=== PATIENT | male | born 1930 | race Caucasian/White ===

== ENCOUNTER 2016-07-20 15:22 | Inpatient (IN) | payer MEDICARE, MEDICAID ==
[~2016-07-20] VITALS: Ht 188 cm; Wt 101.3 kg
[2016-07-20] VITALS (17 sets, daily range): BP systolic 73–123; BP diastolic 40–77
[~2016-07-20 15:22] MED LIST: ACET-73 PO; ACET325T53 PO; ARGI1POW13 PO; ASCO500C16 PO; ASPI-495 PO; ATOR20TA PO; CARV3.122 PO; DIVA500T54 PO; DOCU-25 PO; DUTA0.5C PO; GABA-532 PO; GLIP5TAB13 PO; HYDR-4076 PO; HYDR-548 PO; HYDR-552 PO; IPRA0.2S9 IH; ISOS30TA6 PO; MAG30ORA PO; MAGN2400 PO; METO5TAB7 PO; MULT1TAB11 PO; POTA-10 PO; PRIM250T PO; PROM6.25 PO; TAMS-12 PO; ZINC220T PO
[2016-07-20] MEDS ORDERED: IV NS 0.9% 1,000 ML BAG IV ONE ×2 (15:30→17:00)
[2016-07-20] MEDS ORDERED: IV SET PRIMARY 1 EA INFUS.SET MC ONE (15:31)
[2016-07-20] MEDS ORDERED: IV NS 0.9% 2,000 ML ONE (15:31)
[2016-07-20 15:46] LABS: BASOPHILS % (AUTO) 0.2 % (0.0-2.0); DIFF TOTAL % 100 %; EOSINOPHILS # (AUTO) 0.2 /CMM (0.0-0.7); EOSINOPHILS % (AUTO) 1.6 % (0.0-6.0); HEMATOCRIT 31 % (39-51); HEMOGLOBIN 10.5 g/dL (13.5-17.5); LYMPHOCYTES # (AUTO) 1.9 /CMM (0.8-4.8); LYMPHOCYTES % (AUTO) 20.3 % (20.0-44.0); MEAN CORPUSCULAR HEMOGLOBIN 30 PG (26.0-33.0); MEAN CORPUSCULAR HGB CONC 34 g/dl (31.0-36.0); MEAN CORPUSCULAR VOLUME 89 fL (80-96); MONOCYTES # (AUTO) 1.3 /CMM (0.1-1.30); MONOCYTES % (AUTO) 13.4 % (2.0-12.0); NEUTROPHILS # (AUTO) 6.1 /CMM (1.8-8.9); NEUTROPHILS % (AUTO) 64.5 % (43.0-81.0); PLATELET COUNT (AUTO) 163 /CMM (150-450); RED BLOOD CELL COUNT(AUTO) 3.47 MIL/uL (4.5-6.0); WHITE BLOOD COUNT (AUTO) 9.5 K/uL (4.3-11.0)
[2016-07-20 15:57] LABS: ANION GAP 15 (5-14); CARBON DIOXIDE 27 mmol/L (21-32); CHLORIDE 99 mmol/L (98-107); GLUCOSE 134 mg/dL (74-106); POTASSIUM 4.1 mmol/L (3.5-5.1); SODIUM SERUM 136 mmol/L (136-145); UREA NITROGEN, BLOOD 75 mg/dL (7-18)
[2016-07-20 16:00] LABS: INR 1.01 (0.87-1.13); PROTHROMBIN TIME 10.6 SECS (9.5-12.7)
[2016-07-20 16:03] LABS: ALANINE AMINOTRANSFERASE 9 U/L (12-78); ALBUMIN 2.3 g/dL (3.4-5.0); ASPARTATE AMINOTRANSFERASE 11 U/L (15-37); BILIRUBIN,DIRECT 0.1 mg/dL (0.0-0.2); BILIRUBIN,TOTAL 0.3 mg/dL (0.2-1.0); CALCIUM, SERUM 8.1 mg/dL (8.5-10.1); INDIRECT BILIRUBIN 0.2 mg/dL (0.0-1.1); TOTAL PROTEIN, SERUM 6.9 g/dL (6.4-8.2)
[2016-07-20 16:04] LABS: TROPONIN I < 0.017 ng/mL (0.00-0.056)
[2016-07-20 16:08] LABS: LACTIC ACID 1.5 mmol/L (0.4-2.0)
[2016-07-20] MEDS ORDERED: BLOO-668 IN (16:15)
[2016-07-20] MEDS ORDERED: ATOR10TA PO (16:15)
[2016-07-20] MEDS ORDERED: PANT40TA4 PO (16:15)
[2016-07-20] MEDS ORDERED: POLY15DR40 EACHEYE (16:15)
[2016-07-20] MEDS ORDERED: ENOX40DI SQ (16:15)
[2016-07-20] MEDS ORDERED: ACID1TAB12 PO (16:15)
[2016-07-20] MEDS ORDERED: MELA3TAB PO (16:15)
[2016-07-20] MEDS ORDERED: DIVA125C5 PO (16:15)
[2016-07-20] MEDS ORDERED: DIVA250T6 PO (16:15)
[2016-07-20] MEDS ORDERED: FOLI1TAB16 PO (16:15)
[2016-07-20] MEDS ORDERED: SENN8.6T6 PO (16:15)
[2016-07-20] MEDS ORDERED: PRIM50TA PO (16:15)
[2016-07-20] MEDS ORDERED: NITR0.4T6 SL (16:15)
[2016-07-20] MEDS ORDERED: IV NS 0.9% 1,000 ML ONE (16:55)
[2016-07-20] MEDS ORDERED: IV SET PRIMARY PUMP SET 1 EA INFUS.SET MC ONE ×3 (16:55→19:41)
[2016-07-20 17:16] LABS: KETONES,URINE Trace (NEGATIVE); LEUKOCYTE ESTERASE ,URINE Large (NEGATIVE); PH,URINE 5.5 (5.0-8.0)
[2016-07-20 17:25] LABS: ADD UA MICROSCOPIC YES
[2016-07-20 17:36] LABS: ADD URINE CULTURE YES; RBC,URINE TOO NUMEROUS TO COUN /HPF (0-2); WBC,URINE TOO NUMEROUS TO COUN /HPF (0-3)
[2016-07-20] MEDS ORDERED: AZTREONAM 2 G in IV NS 0.9% 100 ML IV ONE (18:00)
[2016-07-20] MEDS ORDERED: VANCOMYCIN 1 GM in IV D5W 250 ML IV ONE (18:00)
[2016-07-20] MEDS ORDERED: MAG HYDROX/AL HYDROX/SIMETH 30 ML UDC PO PRN (19:00)
[2016-07-20] MEDS ORDERED: NOREPINEPHRINE 8 MG in IV D5W 500 ML IV PRN ×2 (19:00→19:30)
[2016-07-20] MEDS ORDERED: ZOLPIDEM TARTRATE 5 MG TABLET PO PRN (19:00)
[2016-07-20] MEDS ORDERED: ACETAMINOPHEN 325 MG TABLET PO PRN (19:00)
[2016-07-20] MEDS ORDERED: Z GUARD REMEDY 2 OZ OINT TP PRN (19:00)
[2016-07-20] MEDS ORDERED: ONDANSETRON HCL/PF 4 MG/2 ML VIAL IVP PRN (19:00)
[2016-07-20] MEDS ORDERED: MAGNESIUM HYDROXIDE 30 ML UDC PO PRN (19:00)
[2016-07-20] MEDS: IV NS 0.9% 1,000 ML IV PRN (19:25)
[2016-07-20] MEDS ORDERED: SECONDARY IV SET 1 EA INFUS.SET MC ONE (19:41)
[2016-07-20] MEDS: AZTREONAM 500 MG in IV NS 0.9% 50 ML IV SCH (20:30)
[2016-07-20] MEDS ORDERED: AZTREONAM 1 G VIAL IM SCH (21:00)
[2016-07-20] MEDS ORDERED: VANCOMYCIN 1.25 GM in IV D5W 500 ML IV SCH (21:00)
[2016-07-20] MEDS: VANCOMYCIN 1 GM in IV D5W 250 ML IV SCH (21:17)
[2016-07-20] MEDS ORDERED: FEE PK DOSING 1 MIN EA MC ONE (21:41)
[2016-07-20] MEDS ORDERED: LIDOCAINE HCL/PF 1% 30 ML SDV ONE (22:06)
[2016-07-21] VITALS (49 sets, daily range): BP systolic 81–124; BP diastolic 25–90
[2016-07-21] MEDS ORDERED: ACETAMINOPHEN 325 MG TABLET PO PRN
[2016-07-21] MEDS: ATORVASTATIN 10 MG TABLET PO SCH ×2 (00:10→21:02)
[2016-07-21] MEDS: DIVALPROEX SODIUM 250 MG TABLET.DR PO SCH ×2 (00:11→21:03)
[2016-07-21] MEDS ORDERED: AZTREONAM 1 G VIAL ONE (04:04)
[2016-07-21] MEDS ORDERED: IV NS 0.9% 50 ML IV ONE (04:27)
[2016-07-21] MEDS: AZTREONAM 500 MG in IV NS 0.9% 50 ML IV SCH ×3 (05:02→21:02)
[2016-07-21 05:04] LABS: BASOPHILS % (AUTO) 0.4 % (0.0-2.0); DIFF TOTAL % 100 %; EOSINOPHILS # (AUTO) 0.2 /CMM (0.0-0.7); EOSINOPHILS % (AUTO) 1.9 % (0.0-6.0); HEMATOCRIT 35 % (39-51); HEMOGLOBIN 11.5 g/dL (13.5-17.5); LYMPHOCYTES # (AUTO) 1.6 /CMM (0.8-4.8); MEAN CORPUSCULAR HEMOGLOBIN 30 PG (26.0-33.0); MEAN CORPUSCULAR HGB CONC 33 g/dl (31.0-36.0); MEAN CORPUSCULAR VOLUME 90 fL (80-96); MONOCYTES # (AUTO) 1.4 /CMM (0.1-1.30); NEUTROPHILS # (AUTO) 6.9 /CMM (1.8-8.9); NEUTROPHILS % (AUTO) 67.7 % (43.0-81.0); PLATELET COUNT (AUTO) 218 /CMM (150-450); RED BLOOD CELL COUNT(AUTO) 3.85 MIL/uL (4.5-6.0); WHITE BLOOD COUNT (AUTO) 10.3 K/uL (4.3-11.0)
[2016-07-21 05:13] LABS: CALCIUM, SERUM 8.1 mg/dL (8.5-10.1); CREATININE 2.5 mg/dL (0.6-1.3); PHOSPHORUS 3.6 mg/dL (2.5-4.9); POTASSIUM 3.9 mmol/L (3.5-5.1)
[2016-07-21] MEDS: IV NS 0.9% 1,000 ML IV PRN ×2 (07:30→18:08)
[2016-07-21] MEDS ORDERED: HYDROGEL DRESSING 90 GM TUBE TP PRN (08:30)
[2016-07-21] MEDS: DUTASTERIDE (0.5 MG) 0.5 MG CAPSULE PO SCH (08:55)
[2016-07-21] MEDS: ACIDOPHILUS/BULGARICUS 1 EACH TAB.CHEW PO SCH ×2 (08:55→17:11)
[2016-07-21] MEDS: ASPIRIN 81 MG TAB.CHEW PO SCH (08:55)
[2016-07-21] MEDS: GABAPENTIN 100 MG CAPSULE PO SCH ×3 (08:55→17:11)
[2016-07-21] MEDS: FOLIC ACID 1 MG TABLET PO SCH (08:55)
[2016-07-21] MEDS: DOCUSATE SODIUM 100 MG CAPSULE PO SCH ×2 (08:55→17:11)
[2016-07-21] MEDS: HYDROGEL DRESSING 90 GM TUBE TP SCH (08:55)
[2016-07-21] MEDS: DIVALPROEX SODIUM 125 MG CAP.SPRINK PO SCH ×2 (08:55→17:11)
[2016-07-21] MEDS: PANTOPRAZOLE 40 MG TABLET.DR PO SCH (08:55)
[2016-07-21] MEDS ORDERED: POLYETHYLENE GLYCOL 3350 17 GM POWD.PACK PO PRN (10:30)
[2016-07-21] MEDS ORDERED: BISACODYL SUPP (10 MG) 10 MG/SUPP.RECT SUPP.RECT RC PRN (10:30)
[2016-07-21] MEDS: GUAIFENESIN/D-METHORPHAN HB 5 ML UDC PO PRN ×3 (13:32→22:38)
[2016-07-21] MEDS ORDERED: DOCUSATE SODIUM 100 MG CAPSULE PO SCH (17:00)
[2016-07-21] MEDS: HYDROCODONE/APAP 5/325MG 1 EACH TABLET PO PRN (21:33)
[2016-07-22] VITALS (18 sets, daily range): BP systolic 67–139; BP diastolic 36–62
[2016-07-22] MEDS: IV NS 0.9% 1,000 ML IV PRN (03:47)
[2016-07-22] MEDS: HYDROCODONE/APAP 5/325MG 1 EACH TABLET PO PRN ×2 (03:47→08:17)
[2016-07-22] MEDS: GUAIFENESIN/D-METHORPHAN HB 5 ML UDC PO PRN ×2 (03:54→09:56)
[2016-07-22] MEDS: AZTREONAM 500 MG in IV NS 0.9% 50 ML IV SCH ×3 (05:08→21:32)
[2016-07-22 05:29] LABS: CALCIUM, SERUM 8.2 mg/dL (8.5-10.1); CREATININE 1.8 mg/dL (0.6-1.3); POTASSIUM 4.1 mmol/L (3.5-5.1)
[2016-07-22 05:37] LABS: BASOPHILS % (AUTO) 0.4 % (0.0-2.0); DIFF TOTAL % 100 %; EOSINOPHILS # (AUTO) 0.1 /CMM (0.0-0.7); HEMATOCRIT 31 % (39-51); HEMOGLOBIN 10.5 g/dL (13.5-17.5); LYMPHOCYTES # (AUTO) 1.3 /CMM (0.8-4.8); LYMPHOCYTES % (AUTO) 19.6 % (20.0-44.0); MEAN CORPUSCULAR HEMOGLOBIN 30 PG (26.0-33.0); MEAN CORPUSCULAR HGB CONC 34 g/dl (31.0-36.0); MEAN CORPUSCULAR VOLUME 89 fL (80-96); MONOCYTES % (AUTO) 15.3 % (2.0-12.0); NEUTROPHILS # (AUTO) 4.2 /CMM (1.8-8.9); NEUTROPHILS % (AUTO) 62.7 % (43.0-81.0); PLATELET COUNT (AUTO) 129 /CMM (150-450); RED BLOOD CELL COUNT(AUTO) 3.51 MIL/uL (4.5-6.0); WHITE BLOOD COUNT (AUTO) 6.7 K/uL (4.3-11.0)
[2016-07-22 06:26] LABS: BAND % (MANUAL) 1 % (0.0-5.0); EOSINOPHILS % (MANUAL) 1 % (0-4); LYMPHOCYTES % (MANUAL) 17 % (16-48)
[2016-07-22 06:27] LABS: PLATELET ESTIMATE DECREASED
[2016-07-22] MEDS: DOCUSATE SODIUM 100 MG CAPSULE PO SCH ×2 (08:00→16:21)
[2016-07-22] MEDS: ASPIRIN 81 MG TAB.CHEW PO SCH (08:00)
[2016-07-22] MEDS: GABAPENTIN 100 MG CAPSULE PO SCH ×3 (08:00→16:21)
[2016-07-22] MEDS: DUTASTERIDE (0.5 MG) 0.5 MG CAPSULE PO SCH (08:00)
[2016-07-22] MEDS: FOLIC ACID 1 MG TABLET PO SCH (08:00)
[2016-07-22] MEDS: DIVALPROEX SODIUM 125 MG CAP.SPRINK PO SCH ×2 (08:00→16:21)
[2016-07-22] MEDS: PANTOPRAZOLE 40 MG TABLET.DR PO SCH (08:00)
[2016-07-22] MEDS: ACIDOPHILUS/BULGARICUS 1 EACH TAB.CHEW PO SCH ×2 (08:00→16:21)
[2016-07-22] MEDS: HYDROGEL DRESSING 90 GM TUBE TP SCH (08:01)
[2016-07-22] MEDS: SILVER SULFADIAZINE CREAM 25 GM TUBE TP SCH (08:03)
[2016-07-22] MEDS: VANCOMYCIN 1 GM in IV D5W 250 ML IV SCH (08:07)
[2016-07-22] MEDS: IPRATROPIUM NEB FS 0.5 MG/2.5 ML AMPUL.NEB IH PRN ×2 (09:46→13:55)
[2016-07-22] MEDS: HYDROCODONE/APAP 10/325MG 1 EA TABLET PO PRN ×3 (10:07→20:27)
[2016-07-22] MEDS ORDERED: IV NS 0.9% 250 ML IV ONE (12:10)
[2016-07-22] MEDS ORDERED: POLYETHYLENE GLYCOL 3350 17 GM POWD.PACK PO PRN (13:00)
[2016-07-22] MEDS ORDERED: BISACODYL SUPP (10 MG) 10 MG/SUPP.RECT SUPP.RECT RC PRN (13:00)
[2016-07-22] MEDS: ALBUTEROL FS 2.5 MG/3 ML VIAL.NEB NEB SCH ×2 (13:55→19:30)
[2016-07-22] MEDS ORDERED: DOCUSATE SODIUM 100 MG CAPSULE PO SCH (17:00)
[2016-07-22] MEDS: DIVALPROEX SODIUM 250 MG TABLET.DR PO SCH (21:32)
[2016-07-22] MEDS: ATORVASTATIN 10 MG TABLET PO SCH (21:32)
[2016-07-23] VITALS: BP 96/48
[2016-07-23] MEDS: ALBUTEROL FS 2.5 MG/3 ML VIAL.NEB NEB SCH ×4 (01:06→20:03)
[2016-07-23 04:00] VITALS: BP 106/48
[2016-07-23] MEDS: AZTREONAM 500 MG in IV NS 0.9% 50 ML IV SCH ×2 (05:42→13:14)
[2016-07-23 07:14] LABS: BASOPHILS % (AUTO) 0.3 % (0.0-2.0); DIFF TOTAL % 100 %; EOSINOPHILS # (AUTO) 0.2 /CMM (0.0-0.7); EOSINOPHILS % (AUTO) 2.5 % (0.0-6.0); HEMATOCRIT 32 % (39-51); HEMOGLOBIN 10.8 g/dL (13.5-17.5); LYMPHOCYTES # (AUTO) 1.5 /CMM (0.8-4.8); LYMPHOCYTES % (AUTO) 16.7 % (20.0-44.0); MEAN CORPUSCULAR HEMOGLOBIN 30 PG (26.0-33.0); MEAN CORPUSCULAR HGB CONC 34 g/dl (31.0-36.0); MEAN CORPUSCULAR VOLUME 89 fL (80-96); MONOCYTES # (AUTO) 1.3 /CMM (0.1-1.30); MONOCYTES % (AUTO) 14.5 % (2.0-12.0); NEUTROPHILS # (AUTO) 5.9 /CMM (1.8-8.9); PLATELET COUNT (AUTO) 153 /CMM (150-450); RED BLOOD CELL COUNT(AUTO) 3.61 MIL/uL (4.5-6.0)
[2016-07-23 08:00] VITALS: BP 102/70
[2016-07-23 08:01] LABS: CALCIUM, SERUM 8.6 mg/dL (8.5-10.1); CREATININE 1.5 mg/dL (0.6-1.3); POTASSIUM 4.4 mmol/L (3.5-5.1)
[2016-07-23] MEDS: PANTOPRAZOLE 40 MG TABLET.DR PO SCH (08:43)
[2016-07-23] MEDS: GABAPENTIN 100 MG CAPSULE PO SCH ×3 (08:44→18:17)
[2016-07-23] MEDS: DIVALPROEX SODIUM 125 MG CAP.SPRINK PO SCH ×2 (08:44→18:17)
[2016-07-23] MEDS: VANCOMYCIN 1 GM in IV D5W 250 ML IV SCH (08:44)
[2016-07-23] MEDS: DUTASTERIDE (0.5 MG) 0.5 MG CAPSULE PO SCH (08:44)
[2016-07-23] MEDS: ASPIRIN 81 MG TAB.CHEW PO SCH (08:44)
[2016-07-23] MEDS: ACIDOPHILUS/BULGARICUS 1 EACH TAB.CHEW PO SCH ×2 (08:44→18:17)
[2016-07-23] MEDS: FOLIC ACID 1 MG TABLET PO SCH (08:44)
[2016-07-23] MEDS: HYDROCODONE/APAP 10/325MG 1 EA TABLET PO PRN ×2 (08:45→20:21)
[2016-07-23] MEDS: DOCUSATE SODIUM 100 MG CAPSULE PO SCH ×2 (08:46→18:17)
[2016-07-23] MEDS: SILVER SULFADIAZINE CREAM 25 GM TUBE TP SCH (08:52)
[2016-07-23] MEDS: HYDROGEL DRESSING 90 GM TUBE TP SCH (08:52)
[2016-07-23] MEDS: GUAIFENESIN/D-METHORPHAN HB 5 ML UDC PO PRN (10:31)
[2016-07-23 12:00] VITALS: BP 102/49
[2016-07-23] MEDS ORDERED: SECONDARY IV SET 1 EA INFUS.SET MC ONE (12:57)
[2016-07-23] MEDS: TRAMADOL HCL 50 MG TABLET PO PRN (14:44)
[2016-07-23 16:00] VITALS: BP 95/47
[2016-07-23 20:00] VITALS: BP 108/56
[2016-07-23] MEDS: SULFAMETH/TRIMETH 800/160 MG 1 UDTAB TABLET PO SCH (20:20)
[2016-07-23] MEDS: DIVALPROEX SODIUM 250 MG TABLET.DR PO SCH (21:32)
[2016-07-23] MEDS: ATORVASTATIN 10 MG TABLET PO SCH (21:32)
[2016-07-24] VITALS: BP 99/55
[2016-07-24] MEDS: IPRATROPIUM NEB FS 0.5 MG/2.5 ML AMPUL.NEB IH PRN (01:36)
[2016-07-24] MEDS: ALBUTEROL FS 2.5 MG/3 ML VIAL.NEB NEB SCH ×4 (01:36→20:09)
[2016-07-24 04:00] VITALS: BP 105/65
[2016-07-24 08:00] VITALS: BP 100/47
[2016-07-24 08:06] LABS: BASOPHILS % (AUTO) 0.3 % (0.0-2.0); DIFF TOTAL % 100 %; EOSINOPHILS # (AUTO) 0.2 /CMM (0.0-0.7); EOSINOPHILS % (AUTO) 2.3 % (0.0-6.0); HEMATOCRIT 31 % (39-51); HEMOGLOBIN 10.4 g/dL (13.5-17.5); LYMPHOCYTES # (AUTO) 1.8 /CMM (0.8-4.8); LYMPHOCYTES % (AUTO) 19.3 % (20.0-44.0); MEAN CORPUSCULAR HEMOGLOBIN 30 PG (26.0-33.0); MEAN CORPUSCULAR HGB CONC 34 g/dl (31.0-36.0); MEAN CORPUSCULAR VOLUME 89 fL (80-96); MONOCYTES # (AUTO) 1.1 /CMM (0.1-1.30); MONOCYTES % (AUTO) 11.8 % (2.0-12.0); NEUTROPHILS # (AUTO) 6.2 /CMM (1.8-8.9); NEUTROPHILS % (AUTO) 66.3 % (43.0-81.0); PLATELET COUNT (AUTO) 116 /CMM (150-450); RED BLOOD CELL COUNT(AUTO) 3.45 MIL/uL (4.5-6.0); WHITE BLOOD COUNT (AUTO) 9.4 K/uL (4.3-11.0)
[2016-07-24 08:43] LABS: CALCIUM, SERUM 8.4 mg/dL (8.5-10.1); CREATININE 1.7 mg/dL (0.6-1.3); POTASSIUM 4.2 mmol/L (3.5-5.1)
[2016-07-24] MEDS: ASPIRIN 81 MG TAB.CHEW PO SCH (08:56)
[2016-07-24] MEDS: GABAPENTIN 100 MG CAPSULE PO SCH ×3 (08:56→17:21)
[2016-07-24] MEDS: SULFAMETH/TRIMETH 800/160 MG 1 UDTAB TABLET PO SCH ×2 (08:57→21:39)
[2016-07-24] MEDS: ACIDOPHILUS/BULGARICUS 1 EACH TAB.CHEW PO SCH ×2 (08:57→17:22)
[2016-07-24] MEDS: FOLIC ACID 1 MG TABLET PO SCH (08:57)
[2016-07-24] MEDS: TRAMADOL HCL 50 MG TABLET PO PRN ×2 (08:57→17:22)
[2016-07-24] MEDS: DOCUSATE SODIUM 100 MG CAPSULE PO SCH ×2 (08:57→17:22)
[2016-07-24] MEDS: DIVALPROEX SODIUM 125 MG CAP.SPRINK PO SCH ×2 (08:57→17:22)
[2016-07-24] MEDS: PANTOPRAZOLE 40 MG TABLET.DR PO SCH (08:57)
[2016-07-24] MEDS: SILVER SULFADIAZINE CREAM 25 GM TUBE TP SCH (08:59)
[2016-07-24] MEDS: HYDROGEL DRESSING 90 GM TUBE TP SCH (09:00)
[2016-07-24] MEDS: VANCOMYCIN 1 GM in IV D5W 250 ML IV SCH (09:03)
[2016-07-24] MEDS: DUTASTERIDE (0.5 MG) 0.5 MG CAPSULE PO SCH (09:11)
[2016-07-24 12:00] VITALS: BP_SYST 108; BP_SYST 90; BP_DIAS 47; BP_DIAS 71
[2016-07-24] MEDS: HYDROCODONE/APAP 10/325MG 1 EA TABLET PO PRN ×2 (12:55→21:38)
[2016-07-24] MEDS: GUAIFENESIN/D-METHORPHAN HB 5 ML UDC PO PRN (12:55)
[2016-07-24 16:00] VITALS: BP 95/46
[2016-07-24 20:00] VITALS: BP 106/48
[2016-07-24] MEDS: DIVALPROEX SODIUM 250 MG TABLET.DR PO SCH (21:39)
[2016-07-24] MEDS: ATORVASTATIN 10 MG TABLET PO SCH (21:39)
[2016-07-25] VITALS (7 sets, daily range): BP systolic 90–115; BP diastolic 40–50
[2016-07-25] MEDS ORDERED: IV NS 0.9% 250 ML IV ONE (00:43)
[2016-07-25] MEDS ORDERED: IV SET PRIMARY PUMP SET 1 EA INFUS.SET MC ONE (00:43)
[2016-07-25] MEDS ORDERED: SECONDARY IV SET 1 EA INFUS.SET MC ONE (00:43)
[2016-07-25] MEDS: ALBUTEROL FS 2.5 MG/3 ML VIAL.NEB NEB SCH ×4 (01:30→19:58)
[2016-07-25 08:37] LABS: CALCIUM, SERUM 8.5 mg/dL (8.5-10.1); CREATININE 1.8 mg/dL (0.6-1.3)
[2016-07-25] MEDS: FOLIC ACID 1 MG TABLET PO SCH (09:06)
[2016-07-25] MEDS: DUTASTERIDE (0.5 MG) 0.5 MG CAPSULE PO SCH (09:06)
[2016-07-25] MEDS: PANTOPRAZOLE 40 MG TABLET.DR PO SCH (09:06)
[2016-07-25] MEDS: DOCUSATE SODIUM 100 MG CAPSULE PO SCH ×2 (09:06→16:20)
[2016-07-25] MEDS: ACIDOPHILUS/BULGARICUS 1 EACH TAB.CHEW PO SCH ×2 (09:06→16:20)
[2016-07-25] MEDS: ASPIRIN 81 MG TAB.CHEW PO SCH (09:06)
[2016-07-25] MEDS: DIVALPROEX SODIUM 125 MG CAP.SPRINK PO SCH ×2 (09:06→16:20)
[2016-07-25] MEDS: SULFAMETH/TRIMETH 800/160 MG 1 UDTAB TABLET PO SCH ×2 (09:06→21:11)
[2016-07-25] MEDS: VANCOMYCIN 1 GM in IV D5W 250 ML IV SCH (09:07)
[2016-07-25] MEDS: HYDROGEL DRESSING 90 GM TUBE TP SCH (09:07)
[2016-07-25] MEDS: HYDROCODONE/APAP 10/325MG 1 EA TABLET PO PRN (09:08)
[2016-07-25] MEDS: GABAPENTIN 100 MG CAPSULE PO SCH ×3 (09:11→16:20)
[2016-07-25] MEDS: SILVER SULFADIAZINE CREAM 25 GM TUBE TP SCH (09:37)
[2016-07-25] MEDS: ATORVASTATIN 10 MG TABLET PO SCH (21:11)
[2016-07-25] MEDS: DIVALPROEX SODIUM 250 MG TABLET.DR PO SCH (21:11)
[2016-07-26] MEDS: ALBUTEROL FS 2.5 MG/3 ML VIAL.NEB NEB SCH ×4 (01:38→19:30)
[2016-07-26 04:30] VITALS: BP 105/43
[2016-07-26] MEDS: PANTOPRAZOLE 40 MG TABLET.DR PO SCH (06:30)
[2016-07-26] MEDS: IPRATROPIUM NEB FS 0.5 MG/2.5 ML AMPUL.NEB IH PRN (07:33)
[2016-07-26 08:00] VITALS: BP 97/53
[2016-07-26] MEDS: DUTASTERIDE (0.5 MG) 0.5 MG CAPSULE PO SCH (08:10)
[2016-07-26] MEDS: FOLIC ACID 1 MG TABLET PO SCH (08:10)
[2016-07-26] MEDS: DIVALPROEX SODIUM 125 MG CAP.SPRINK PO SCH ×2 (08:10→16:14)
[2016-07-26] MEDS: ASPIRIN 81 MG TAB.CHEW PO SCH (08:10)
[2016-07-26] MEDS: HYDROGEL DRESSING 90 GM TUBE TP SCH (08:10)
[2016-07-26] MEDS: SILVER SULFADIAZINE CREAM 25 GM TUBE TP SCH (08:10)
[2016-07-26] MEDS: DOCUSATE SODIUM 100 MG CAPSULE PO SCH ×2 (08:10→16:14)
[2016-07-26] MEDS: SULFAMETH/TRIMETH 800/160 MG 1 UDTAB TABLET PO SCH ×2 (08:11→22:01)
[2016-07-26] MEDS: GABAPENTIN 100 MG CAPSULE PO SCH ×3 (08:11→16:14)
[2016-07-26] MEDS: ACIDOPHILUS/BULGARICUS 1 EACH TAB.CHEW PO SCH ×2 (08:11→16:14)
[2016-07-26] MEDS: HYDROCODONE/APAP 10/325MG 1 EA TABLET PO PRN (08:12)
[2016-07-26 08:17] LABS: CALCIUM, SERUM 8.6 mg/dL (8.5-10.1); CREATININE 1.7 mg/dL (0.6-1.3); POTASSIUM 4.4 mmol/L (3.5-5.1)
[2016-07-26] MEDS: TRAMADOL HCL 50 MG TABLET PO PRN (15:14)
[2016-07-26 16:00] VITALS: BP 94/45
[2016-07-26 20:00] VITALS: BP 97/45
[2016-07-26] MEDS: ATORVASTATIN 10 MG TABLET PO SCH (22:00)
[2016-07-26] MEDS: DIVALPROEX SODIUM 250 MG TABLET.DR PO SCH (22:01)
[2016-07-27] MEDS: ALBUTEROL FS 2.5 MG/3 ML VIAL.NEB NEB SCH ×4 (01:30→19:39)
[2016-07-27 04:00] VITALS: BP 122/82
[2016-07-27] MEDS: HYDROCODONE/APAP 10/325MG 1 EA TABLET PO PRN (05:38)
[2016-07-27] MEDS: PANTOPRAZOLE 40 MG TABLET.DR PO SCH (06:15)
[2016-07-27 07:24] LABS: BASOPHILS % (AUTO) 0.6 % (0.0-2.0); DIFF TOTAL % 100 %; EOSINOPHILS # (AUTO) 0.5 /CMM (0.0-0.7); EOSINOPHILS % (AUTO) 8.2 % (0.0-6.0); HEMATOCRIT 31 % (39-51); HEMOGLOBIN 10.2 g/dL (13.5-17.5); LYMPHOCYTES # (AUTO) 1.2 /CMM (0.8-4.8); LYMPHOCYTES % (AUTO) 19.5 % (20.0-44.0); MEAN CORPUSCULAR HEMOGLOBIN 30 PG (26.0-33.0); MEAN CORPUSCULAR HGB CONC 33 g/dl (31.0-36.0); MEAN CORPUSCULAR VOLUME 89 fL (80-96); MONOCYTES # (AUTO) 0.9 /CMM (0.1-1.30); MONOCYTES % (AUTO) 13.6 % (2.0-12.0); NEUTROPHILS # (AUTO) 3.7 /CMM (1.8-8.9); NEUTROPHILS % (AUTO) 58.1 % (43.0-81.0); PLATELET COUNT (AUTO) 159 /CMM (150-450); RED BLOOD CELL COUNT(AUTO) 3.46 MIL/uL (4.5-6.0); WHITE BLOOD COUNT (AUTO) 6.4 K/uL (4.3-11.0)
[2016-07-27 07:28] LABS: CALCIUM, SERUM 8.4 mg/dL (8.5-10.1); CREATININE 1.8 mg/dL (0.6-1.3); POTASSIUM 4.4 mmol/L (3.5-5.1)
[2016-07-27 08:00] VITALS: BP 87/90
[2016-07-27] MEDS: SULFAMETH/TRIMETH 800/160 MG 1 UDTAB TABLET PO SCH ×2 (09:12→21:24)
[2016-07-27] MEDS: ASPIRIN 81 MG TAB.CHEW PO SCH (09:12)
[2016-07-27] MEDS: DIVALPROEX SODIUM 125 MG CAP.SPRINK PO SCH ×2 (09:12→17:38)
[2016-07-27] MEDS: FOLIC ACID 1 MG TABLET PO SCH (09:12)
[2016-07-27] MEDS: DOCUSATE SODIUM 100 MG CAPSULE PO SCH ×2 (09:12→17:38)
[2016-07-27] MEDS: GABAPENTIN 100 MG CAPSULE PO SCH ×3 (09:13→17:38)
[2016-07-27] MEDS: ACIDOPHILUS/BULGARICUS 1 EACH TAB.CHEW PO SCH ×2 (09:13→17:38)
[2016-07-27] MEDS: HYDROGEL DRESSING 90 GM TUBE TP SCH (09:54)
[2016-07-27] MEDS: SILVER SULFADIAZINE CREAM 25 GM TUBE TP SCH (09:54)
[2016-07-27] MEDS: DUTASTERIDE (0.5 MG) 0.5 MG CAPSULE PO SCH (10:35)
[2016-07-27] MEDS: TRAMADOL HCL 50 MG TABLET PO PRN (10:40)
[2016-07-27 16:00] VITALS: BP 96/50
[2016-07-27 20:00] VITALS: BP 98/47
[2016-07-27] MEDS: DIVALPROEX SODIUM 250 MG TABLET.DR PO SCH (21:25)
[2016-07-27] MEDS: ATORVASTATIN 10 MG TABLET PO SCH (21:25)
[2016-07-28] MEDS: ALBUTEROL FS 2.5 MG/3 ML VIAL.NEB NEB SCH ×4 (00:52→19:30)
[2016-07-28 04:00] VITALS: BP 95/48
[2016-07-28 06:56] LABS: BASOPHILS % (AUTO) 0.8 % (0.0-2.0); DIFF TOTAL % 100 %; EOSINOPHILS # (AUTO) 0.4 /CMM (0.0-0.7); EOSINOPHILS % (AUTO) 6.4 % (0.0-6.0); HEMATOCRIT 31 % (39-51); HEMOGLOBIN 10.2 g/dL (13.5-17.5); LYMPHOCYTES # (AUTO) 1.4 /CMM (0.8-4.8); LYMPHOCYTES % (AUTO) 23.3 % (20.0-44.0); MEAN CORPUSCULAR HEMOGLOBIN 30 PG (26.0-33.0); MEAN CORPUSCULAR HGB CONC 33 g/dl (31.0-36.0); MEAN CORPUSCULAR VOLUME 90 fL (80-96); MONOCYTES # (AUTO) 0.8 /CMM (0.1-1.30); MONOCYTES % (AUTO) 13.8 % (2.0-12.0); NEUTROPHILS # (AUTO) 3.3 /CMM (1.8-8.9); NEUTROPHILS % (AUTO) 55.7 % (43.0-81.0); PLATELET COUNT (AUTO) 161 /CMM (150-450); RED BLOOD CELL COUNT(AUTO) 3.44 MIL/uL (4.5-6.0)
[2016-07-28 07:10] LABS: CALCIUM, SERUM 8.5 mg/dL (8.5-10.1); CREATININE 1.9 mg/dL (0.6-1.3); POTASSIUM 4.5 mmol/L (3.5-5.1)
[2016-07-28] MEDS: PANTOPRAZOLE 40 MG TABLET.DR PO SCH (07:30)
[2016-07-28 08:00] VITALS: BP 96/43
[2016-07-28] MEDS: SULFAMETH/TRIMETH 800/160 MG 1 UDTAB TABLET PO SCH ×2 (09:00→21:12)
[2016-07-28] MEDS: SILVER SULFADIAZINE CREAM 25 GM TUBE TP SCH (09:00)
[2016-07-28] MEDS: HYDROGEL DRESSING 90 GM TUBE TP SCH (09:00)
[2016-07-28] MEDS: ACIDOPHILUS/BULGARICUS 1 EACH TAB.CHEW PO SCH ×2 (10:49→17:51)
[2016-07-28] MEDS: DUTASTERIDE (0.5 MG) 0.5 MG CAPSULE PO SCH (10:49)
[2016-07-28] MEDS: GUAIFENESIN/D-METHORPHAN HB 5 ML UDC PO PRN (10:49)
[2016-07-28] MEDS: DIVALPROEX SODIUM 125 MG CAP.SPRINK PO SCH ×2 (10:49→17:51)
[2016-07-28] MEDS: GABAPENTIN 100 MG CAPSULE PO SCH ×3 (10:50→17:51)
[2016-07-28] MEDS: DOCUSATE SODIUM 100 MG CAPSULE PO SCH ×2 (10:50→17:50)
[2016-07-28] MEDS: ASPIRIN 81 MG TAB.CHEW PO SCH (10:50)
[2016-07-28] MEDS: FOLIC ACID 1 MG TABLET PO SCH (10:50)
[2016-07-28 16:00] VITALS: BP 105/46
[2016-07-28 20:00] VITALS: BP 96/54
[2016-07-28] MEDS: ATORVASTATIN 10 MG TABLET PO SCH (21:12)
[2016-07-28] MEDS: DIVALPROEX SODIUM 250 MG TABLET.DR PO SCH (21:12)
[2016-07-29] MEDS: ALBUTEROL FS 2.5 MG/3 ML VIAL.NEB NEB SCH ×4 (01:30→20:05)
[2016-07-29 04:00] VITALS: BP 113/68
[2016-07-29 06:50] LABS: BASOPHILS # (AUTO) 0.1 /CMM (0.0-0.2); BASOPHILS % (AUTO) 0.7 % (0.0-2.0); DIFF TOTAL % 100 %; EOSINOPHILS # (AUTO) 0.4 /CMM (0.0-0.7); EOSINOPHILS % (AUTO) 5.7 % (0.0-6.0); HEMATOCRIT 32 % (39-51); HEMOGLOBIN 10.4 g/dL (13.5-17.5); LYMPHOCYTES # (AUTO) 1.8 /CMM (0.8-4.8); LYMPHOCYTES % (AUTO) 25.6 % (20.0-44.0); MEAN CORPUSCULAR HEMOGLOBIN 29 PG (26.0-33.0); MEAN CORPUSCULAR HGB CONC 33 g/dl (31.0-36.0); MEAN CORPUSCULAR VOLUME 89 fL (80-96); MONOCYTES % (AUTO) 14.2 % (2.0-12.0); NEUTROPHILS # (AUTO) 3.8 /CMM (1.8-8.9); NEUTROPHILS % (AUTO) 53.8 % (43.0-81.0); PLATELET COUNT (AUTO) 168 /CMM (150-450); RED BLOOD CELL COUNT(AUTO) 3.57 MIL/uL (4.5-6.0); WHITE BLOOD COUNT (AUTO) 7.1 K/uL (4.3-11.0)
[2016-07-29 06:58] LABS: CALCIUM, SERUM 8.8 mg/dL (8.5-10.1); CREATININE 2.1 mg/dL (0.6-1.3); POTASSIUM 4.2 mmol/L (3.5-5.1)
[2016-07-29 08:00] VITALS: BP 94/51
[2016-07-29] MEDS: DOCUSATE SODIUM 100 MG CAPSULE PO SCH ×2 (10:05→16:50)
[2016-07-29] MEDS: DIVALPROEX SODIUM 125 MG CAP.SPRINK PO SCH ×2 (10:05→16:50)
[2016-07-29] MEDS: DUTASTERIDE (0.5 MG) 0.5 MG CAPSULE PO SCH (10:05)
[2016-07-29] MEDS: FOLIC ACID 1 MG TABLET PO SCH (10:06)
[2016-07-29] MEDS: HYDROGEL DRESSING 90 GM TUBE TP SCH (10:06)
[2016-07-29] MEDS: ASPIRIN 81 MG TAB.CHEW PO SCH (10:06)
[2016-07-29] MEDS: PANTOPRAZOLE 40 MG TABLET.DR PO SCH (10:06)
[2016-07-29] MEDS: GABAPENTIN 100 MG CAPSULE PO SCH ×3 (10:06→16:50)
[2016-07-29] MEDS: ACIDOPHILUS/BULGARICUS 1 EACH TAB.CHEW PO SCH ×2 (10:06→16:50)
[2016-07-29] MEDS: SILVER SULFADIAZINE CREAM 25 GM TUBE TP SCH (10:07)
[2016-07-29 16:00] VITALS: BP 98/63
[2016-07-29 20:00] VITALS: BP 103/58
[2016-07-29] MEDS: DIVALPROEX SODIUM 250 MG TABLET.DR PO SCH (22:29)
[2016-07-29] MEDS: ATORVASTATIN 10 MG TABLET PO SCH (22:29)
[2016-07-30] MEDS: ALBUTEROL FS 2.5 MG/3 ML VIAL.NEB NEB SCH ×2 (01:30→07:17)
[2016-07-30 04:00] VITALS: BP 101/51
[2016-07-30] MEDS: HYDROCODONE/APAP 10/325MG 1 EA TABLET PO PRN (06:29)
[2016-07-30 08:00] VITALS: BP_SYST 100; BP_SYST 91; BP_DIAS 53; BP_DIAS 54
[2016-07-30] MEDS: ASPIRIN 81 MG TAB.CHEW PO SCH (08:52)
[2016-07-30] MEDS: ACIDOPHILUS/BULGARICUS 1 EACH TAB.CHEW PO SCH (08:52)
[2016-07-30] MEDS: DUTASTERIDE (0.5 MG) 0.5 MG CAPSULE PO SCH (08:53)
[2016-07-30] MEDS: DIVALPROEX SODIUM 125 MG CAP.SPRINK PO SCH (08:53)
[2016-07-30] MEDS: GABAPENTIN 100 MG CAPSULE PO SCH ×2 (08:53→12:18)
[2016-07-30] MEDS: FOLIC ACID 1 MG TABLET PO SCH (08:53)
[2016-07-30] MEDS: PANTOPRAZOLE 40 MG TABLET.DR PO SCH (08:53)
[2016-07-30] MEDS: HYDROGEL DRESSING 90 GM TUBE TP SCH (08:54)
[2016-07-30] MEDS: SILVER SULFADIAZINE CREAM 25 GM TUBE TP SCH (08:54)
[2016-07-30] MEDS: DOCUSATE SODIUM 100 MG CAPSULE PO SCH (08:54)
== END 2016-07-30 13:19 | DRG 853 ==
LOC: ER 15:25 → ICU 17:54 → TELE-TD 07-22 15:45 → TELE1 07-22 16:58 → MEDSG1 07-25 07:42
PROVIDERS: ADMIT Internal Medicine; ATTEND Internal Medicine
PROC: 0JPT0PZ Removal of Cardiac Rhythm Related Device from Trunk Subcutaneous Tissue and Fascia, Open Approach (ICD-10-PCS; 2016-07-20)
PROC: 0JH609Z Insertion of Cardiac Resynchronization Defibrillator Pulse Generator into Chest Subcutaneous Tissue and Fascia, Open Approach (ICD-10-PCS; 2016-07-20)
PROC: 05H533Z Insertion of Infusion Device into Right Subclavian Vein, Percutaneous Approach (ICD-10-PCS; 2016-07-21)
PROC: 0KBW0ZZ Excision of Left Foot Muscle, Open Approach (ICD-10-PCS; principal; 2016-07-23)
PROC: 0MBT0ZZ Excision of Left Foot Bursa and Ligament, Open Approach (ICD-10-PCS; 2016-07-26)
DX: A41.9 Sepsis, unspecified organism (principal); E43 Unspecified severe protein-calorie malnutrition; N17.0 Acute kidney failure with tubular necrosis; I13.0 Hypertensive heart and chronic kidney disease with heart failure and stage 1 through stage 4 chronic kidney disease, or unspecified chronic kidney disease; I50.22 Chronic systolic (congestive) heart failure; N39.0 Urinary tract infection, site not specified; I44.2 Atrioventricular block, complete; D63.8 Anemia in other chronic diseases classified elsewhere; E11.22 Type 2 diabetes mellitus with diabetic chronic kidney disease; E11.42 Type 2 diabetes mellitus with diabetic polyneuropathy; E11.621 Type 2 diabetes mellitus with foot ulcer; E78.5 Hyperlipidemia, unspecified; E86.9 Volume depletion, unspecified; I25.10 Atherosclerotic heart disease of native coronary artery without angina pectoris; I25.5 Ischemic cardiomyopathy; B96.4 Proteus (mirabilis) (morganii) as the cause of diseases classified elsewhere; F03.90 Unspecified dementia, unspecified severity, without behavioral disturbance, psychotic disturbance, mood disturbance, and anxiety; Z95.1 Presence of aortocoronary bypass graft; Z86.73 Personal history of transient ischemic attack (TIA), and cerebral infarction without residual deficits; Z66 Do not resuscitate; Z88.0 Allergy status to penicillin; Z87.891 Personal history of nicotine dependence; N18.3 Chronic kidney disease, stage 3 (moderate); K21.9 Gastro-esophageal reflux disease without esophagitis; N40.1 Benign prostatic hyperplasia with lower urinary tract symptoms; Z95.810 Presence of automatic (implantable) cardiac defibrillator; Z87.440 Personal history of urinary (tract) infections; Z95.5 Presence of coronary angioplasty implant and graft; M21.172 Varus deformity, not elsewhere classified, left ankle; L98.9 Disorder of the skin and subcutaneous tissue, unspecified; L97.522 Non-pressure chronic ulcer of other part of left foot with fat layer exposed; I95.9 Hypotension, unspecified; I72.3 Aneurysm of iliac artery; J44.9 Chronic obstructive pulmonary disease, unspecified; M19.90 Unspecified osteoarthritis, unspecified site; Z86.718 Personal history of other venous thrombosis and embolism; R65.20 Severe sepsis without septic shock
CPT/HCPCS: 36415; 71010-TC; 80048-TC; 80061-TC; 80076-TC; 80202-TC; 81000-TC; 82962-TC; 83605-TC; 83735-TC; 84100-TC; 84484-TC; 85025-TC; 85730-TC; 86850-TC; 87040-TC; 87081-TC; 87086-TC; 87186-TC; 93307-TC; 94799-TC; A4216; A4606; A6248; A6402; A6403; C1751; J3370; J3490; J7030; J7050; J7060; Z7610

== ENCOUNTER 2017-02-02 00:23 | Inpatient (IN) | payer MEDICARE, MEDICAID ==
[~2017-02-02] VITALS: Ht 182.9 cm; Wt 101.6 kg
[~2017-02-02 00:23] MED LIST changes: +ACID1TAB12 PO; -ARGI1POW13 PO; -ASPI-495 PO; +ATOR10TA PO; -ATOR20TA PO; +BLOO-668 IN; +DIVA125C5 PO; +DIVA250T6 PO; -DIVA500T54 PO; +ENOX40DI SQ; +FOLI1TAB16 PO; -HYDR-552 PO; +MELA3TAB PO; +NITR0.4T6 SL; +PANT40TA4 PO; +POLY15DR40 EACHEYE; +PRIM50TA PO; -PROM6.25 PO; +SENN8.6T6 PO
--- NOTE | 2017-02-02 00:30 | NUR ---
TO BED 4 A 87 YO MALE BIBRA W C/O "SOB WITH INITIAL O2 SATS IN THE LOW 80'S"; RHONCHI. BREATHING TREATMENT GIVEN ON THE FIELD. PLACED ON CARDIAC AND VS MONITORING. KEPT HOB ELEVATED. COMFORT MEASURES RENDERED. DR GARRIDO AT BEDSIDE TO [facility].
--- NOTE | 2017-02-02 00:45 | NUR ---
started a saline lock on the right ac g18, blood drawn and sent to lab.
[2017-02-02 00:53] LABS: BASOPHILS % (AUTO) 0.2 % (0.0-2.0); EOSINOPHILS # (AUTO) 0.1 /CMM (0.0-0.7); EOSINOPHILS % (AUTO) 0.8 % (0.0-6.0); HEMATOCRIT 35 % (39-51); HEMOGLOBIN 11.7 g/dL (13.5-17.5); LYMPHOCYTES # (AUTO) 3.1 /CMM (0.8-4.8); LYMPHOCYTES % (AUTO) 20.6 % (20.0-44.0); MEAN CORPUSCULAR HEMOGLOBIN 29 PG (26.0-33.0); MEAN CORPUSCULAR HGB CONC 34 g/dl (31.0-36.0); MEAN CORPUSCULAR VOLUME 87 fL (80-96); MONOCYTES # (AUTO) 2.4 /CMM (0.1-1.30); MONOCYTES % (AUTO) 16.3 % (2.0-12.0); NEUTROPHILS # (AUTO) 9.3 /CMM (1.8-8.9); NEUTROPHILS % (AUTO) 62.1 % (43.0-81.0); PLATELET COUNT (AUTO) 115 /CMM (150-450); RDW COEFFICIENT OF VARIATION 14.5 (11.5-15.0); RED BLOOD CELL COUNT(AUTO) 4.04 MIL/uL (4.5-6.0)
--- NOTE | 2017-02-02 00:56 | NUR ---
XR TECH AT BEDSIDE TO EVAL.
[2017-02-02] MEDS ORDERED: ACETAMINOPHEN 325 MG TABLET PO ONE (01:00)
[2017-02-02] MEDS ORDERED: ACETAMINOPHEN ES 500 MG TABLET ONE (01:02)
[2017-02-02 01:03] LABS: CALCIUM, SERUM 8.7 mg/dL (8.5-10.1); CARBON DIOXIDE 26 mmol/L (21-32); CHLORIDE 101 mmol/L (98-107); GLUCOSE 187 mg/dL (74-106); POTASSIUM 3.5 mmol/L (3.5-5.1); SODIUM SERUM 139 mmol/L (136-145); UREA NITROGEN, BLOOD 45 mg/dL (7-18)
[2017-02-02 01:11] LABS: TROPONIN I 0.023 ng/mL (0.00-0.056)
[2017-02-02 01:17] LABS: ALANINE AMINOTRANSFERASE 28 U/L (12-78); ALBUMIN 2.7 g/dL (3.4-5.0); ALKALINE PHOSPHATASE 116 U/L (46-116); ASPARTATE AMINOTRANSFERASE 28 U/L (15-37); B-TYPE NATRIURETIC PEPTIDE 1597 PG/ML (0-125); BILIRUBIN,DIRECT 0.2 mg/dL (0.0-0.2); BILIRUBIN,TOTAL 0.6 mg/dL (0.2-1.0); TOTAL PROTEIN, SERUM 8.2 g/dL (6.4-8.2)
[2017-02-02 01:29] LABS: BAND % (MANUAL) 3 % (0.0-5.0); EOSINOPHILS % (MANUAL) 1 % (0-4); LYMPHOCYTES % (MANUAL) 21 % (16-48); MONOCYTES % (MANUAL) 16 % (0-11.0); NEUTROPHILS % (MANUAL) 59 (42-76)
[2017-02-02] MEDS ORDERED: LEVOFLOXACIN 750 MG /D5W 150ML PIGGYBACK IV ONE (01:30)
[2017-02-02] MEDS ORDERED: AZTREONAM 1 G in IV NS 0.9% 100 ML IV ONE (01:30)
[2017-02-02] MEDS ORDERED: LEVOFLOXACIN 750 MG /D5W 150ML 150 ML IV ONE (01:38)
[2017-02-02] MEDS ORDERED: AZTREONAM 1 G VIAL ONE ×2 (01:38→05:44)
--- NOTE | 2017-02-02 01:50 | NUR ---
REPORT GIVEN TO IVANIA SANDY FOR TELE ADMISSION AND JACKIE.
[2017-02-02] MEDS ORDERED: DULO30CA2 PO (02:09)
[2017-02-02] MEDS ORDERED: MINE3.5O OP (02:09)
[2017-02-02] MEDS ORDERED: POLY15DR58 OP (02:09)
[2017-02-02] MEDS ORDERED: ALPR0.5T PO (02:09)
[2017-02-02] MEDS ORDERED: CRAN425C PO (02:09)
[2017-02-02] MEDS ORDERED: ASPI81TA2 PO (02:09)
[2017-02-02] MEDS ORDERED: CRAN3875 PO (02:09)
[2017-02-02] MEDS ORDERED: LOPE2CAP PO (02:09)
[2017-02-02] MEDS ORDERED: ASCO500T9 PO (02:09)
--- NOTE | 2017-02-02 02:30 | NUR ---
ENDORSED TO IVANIA SANDY AZACTAM 1GM IVPB X1 ORDER BY DR GARRIDO.
--- NOTE | 2017-02-02 02:50 | NUR ---
PERFORMED MOFFETT CATHETER INSERTION ASEPTICALLY, ABOUT 800CC CLOUDY YELLOW URINE DRAINED, URINE COLLECTED AND CALLED LAB FOR CREAM DUMPER.
--- NOTE | 2017-02-02 02:54 | NUR ---
TRANSFERRED PATIENT TO TELE BED VIA ALS PROTOCOL, NO INCIDENT NOTED. ENDORSED TO IVANIA AZACTAM 1MG IVPB TO BE GIVEN.
[2017-02-02 03:00] VITALS: BP 113/73
--- NOTE | 2017-02-02 03:00 | NUR ---
TELE/RN OPENING NOTES PT RECEIVED FROM ER VIA TESS. ON 4L O2 VIA SIMPLE MASK SATTING 96%. BREATHING EVEN AND UNLABORED. NON-PRODUCTIVE COUGH NOTED. A/OX2, ORIENTED PT TO ENVIRONMENT AND SITUATION. DENIES PAIN AT THIS TIME. IV TO RAC PATENT AND INTACT. MOFFETT IN PLACE DRAINING VANILLA LOOKING URINE. BED IN LOW/LOCKED POSITION WITH CALL LIGHT IN REACH. SIDE RAILS UPX2 WITH BED ALARM ON FOR SAFETY. EXTREMITIES OFFLOADED. SACRUM OFFLOADED. WILL CONTINUE TO MONITOR Addendum: 02/02/17 at 0810 by BRIANNA CRUZ RN ON 4LPM O2 VIA NC
[2017-02-02 03:02] LABS: APPEARANCE,URINE CLOUDY (CLEAR); BILIRUBIN,URINE NEGATIVE (NEGATIVE); BLOOD, URINE 2+ Ery/uL (NEGATIVE); COLOR,URINE YELLOW (YELLOW); KETONES,URINE NEGATIVE (NEGATIVE); LEUKOCYTE ESTERASE ,URINE 3+ (NEGATIVE); NITRITE, URINE POSITIVE (NEGATIVE); PH,URINE 5.5 (5.0-8.0); PROTEIN,URINE 1+ mg/dl (NEGATIVE); UGLUCOSE NEGATIVE (NEGATIVE); UROBILINOGEN,URINE 0.2 EU/dL (0.2)
[2017-02-02 03:09] LABS: BACTERIA,URINE 3+ /HPF (None Seen); SQUAMOUS EPITHELIAL CELL,UR Moderate /HPF (None Seen); WBC,URINE TOO NUMEROUS TO COUN /HPF (0-3)
[2017-02-02] MEDS ORDERED: IV NS 0.9% 1,000 ML IV PRN (03:44)
[2017-02-02] MEDS ORDERED: IPRATROPIUM NEB FS 0.5 MG/2.5 ML AMPUL.NEB IH PRN (04:00)
[2017-02-02] MEDS ORDERED: ONDANSETRON HCL/PF 4 MG/2 ML VIAL IVP PRN (04:00)
[2017-02-02] MEDS ORDERED: ACETAMINOPHEN 325 MG TABLET PO PRN (04:00)
[2017-02-02] MEDS ORDERED: HYDROCODONE/APAP 5/325MG 1 EACH TABLET PO PRN (04:00)
[2017-02-02] MEDS ORDERED: ZOLPIDEM TARTRATE 5 MG TABLET PO PRN (04:00)
[2017-02-02] MEDS ORDERED: DOCUSATE SODIUM 100 MG CAPSULE PO PRN (04:00)
[2017-02-02] MEDS ORDERED: ALPRAZOLAM 0.5 MG TABLET PO PRN (04:00)
[2017-02-02] MEDS ORDERED: SENNOSIDES 8.6 MG TABLET PO PRN (04:00)
[2017-02-02] MEDS ORDERED: ALBUTEROL FS 2.5 MG/3 ML VIAL.NEB NEB PRN (04:00)
[2017-02-02] MEDS ORDERED: Z GUARD REMEDY 2 OZ OINT TP PRN (04:00)
[2017-02-02] MEDS ORDERED: LEVOFLOXACIN 500 MG /D5W 100ML 500 MG in PREMIX 1 EA IV SCH (04:00)
[2017-02-02] MEDS ORDERED: MAGNESIUM HYDROXIDE 30 ML UDC PO PRN (04:00)
[2017-02-02] MEDS ORDERED: MAG HYDROX/AL HYDROX/SIMETH 30 ML UDC PO PRN (04:00)
--- NOTE | 2017-02-02 04:00 | NUR ---
TELE/RN NOTES ER PAPER ORDER NOTES TO GIVE AZACTAM 1G IV ONE TIME. MD VAUGHN INPUTTED ORDERS FOR AZACTAM 1G IV Q8H STARTING AT 0500. WILL ADMINISTER AZACTAM PER MD VAUGHN'S ORDER SCHEDULED FOR 0500.
[2017-02-02] MEDS ORDERED: AZTREONAM 1 G in IV NS 0.9% 100 ML IV SCH (05:00)
--- NOTE | 2017-02-02 05:29 | NUR ---
TELE/RN NOTES AZACTAM NOT AVAILABLE FOR OVERRIDE ON 3W. FAXED ORDER TO INDUSTRIAL ECONOMICS TEACHER AND FOLLOWED UP. FLOORS ARE BEING DONE AND INDUSTRIAL ECONOMICS TEACHER HAS NOT BEEN ABLE TO OVERRIDE MED YET. SHE WILL BRING UP AZACTAM GELA.
--- NOTE | 2017-02-02 05:53 | NUR ---
TELE/RN NOTES AZACTAM DELIVERED BY CHEMICAL ENGINEERING TECHNOLOGIST. WILL ADMINISTER ORDERED.
--- NOTE | 2017-02-02 07:30 | NUR ---
TELE/RN CLOSING NOTES PT ASLEEP, EASILY AROUSABLE TO NAME/TOUCH. BREATHING EVEN AND UNLABORED. ON 4LPM O2 VIA NC, NO S/S OF SOB OR DISTRESS NOTED. DENIES PAIN. ON TELE MONITOR SHOWING AV AND V-PACING WITH HEART RATE AT 70. MOFFETT IN PLACE AND DRAINING WELL. WOUND CONSULT ORDERED. IV TO RAC RUNNING IVF ORDERED. TURNED/REPOSITIONED PT Q2H, EXTREMITIES OFFLOADED. BED IN LOW/LOCKED POSITION WITH CALL LIGHT IN REACH. SIDE RAILS UPX2. ENDORSED TO AM SHIFT JACKIE.
[2017-02-02 08:00] VITALS: BP 111/59
--- NOTE | 2017-02-02 08:34 | NUR ---
RN OPEN NOTES RECEIVED REPORT FROM BALLET TEACHER NURSE. PATIENT IS IN BED, ALERT AND ORIENTED TO NAME, PLACE AND TIME. BED IN LOW POSITION, LOCKED AND TWO SIDE RAILS ARE UP. NO SIGNS AND SYMPTOMS OF DISTRESS OR PAIN. WILL CONTINUE TO ASSESS AND MONITOR PATIENT THROUGH OUT MY SHIFT.
[2017-02-02] MEDS: ACIDOPHILUS/BULGARICUS 1 EACH TAB.CHEW PO SCH ×2 (09:01→16:18)
[2017-02-02] MEDS: ASPIRIN 81 MG TAB.CHEW PO SCH (09:02)
[2017-02-02] MEDS: DUTASTERIDE (0.5 MG) 0.5 MG CAPSULE PO SCH (09:02)
[2017-02-02] MEDS: DULOXETINE HCL 30 MG CAPSULE.DR PO SCH (09:02)
[2017-02-02] MEDS: GABAPENTIN 300 MG CAPSULE PO SCH ×3 (09:02→16:18)
[2017-02-02] MEDS: ASCORBIC ACID 500 MG TABLET PO SCH (09:02)
[2017-02-02] MEDS: CARVEDILOL 3.125 MG TABLET PO SCH ×2 (09:02→16:22)
[2017-02-02] MEDS: PANTOPRAZOLE 40 MG TABLET.DR PO SCH (09:02)
[2017-02-02] MEDS: FOLIC ACID 1 MG TABLET PO SCH (09:02)
[2017-02-02] MEDS: DIVALPROEX SODIUM 125 MG CAP.SPRINK PO SCH ×2 (09:02→16:18)
--- NOTE | 2017-02-02 09:19 | NUR ---
[facility] CON[facility]M [facility] RE[facility] TO NORCO. PER [facility] CHARGE NURSE, PATIENT WAS TAKEN NORCO BEFORE WITH NO REACTION. COMMUNICATE INFO TO PHARMACY
[2017-02-02] MEDS: POTASSIUM CHLORIDE 20 MEQ TAB.PRT.SR PO SCH ×3 (09:50→12:31)
[2017-02-02] MEDS ORDERED: FUROSEMIDE 20 MG/2 ML VIAL IV ONE (10:00)
--- NOTE | 2017-02-02 10:29 | NUR ---
PATIENT IS OFF THE FLOOR FOR [facility] PULMONARY WITH VENT
--- NOTE | 2017-02-02 11:56 | NUR ---
PATIENT IS BACK TO THE FLOOR
[2017-02-02] MEDS: NEOMY SULF/BACITRAC ZN/POLY 15 GM TUBE TP SCH (12:01)
[2017-02-02] MEDS: PRIMIDONE 250 MG TABLET PO SCH ×3 (12:01→16:18)
--- NOTE | 2017-02-02 12:23 | NUR ---
WOUND CARE CONSULT: PT EATING LUNCH AT THIS TIME. NOT SEEN FOR SKIN ASSESSMENT DUE TO PT EATING LUNCH. PT FOLLOWED BY PLASTICS TEAM. DEFER TO PLASTICS TEAM FOR WOUND/SKIN CARE PLAN. PT ON ARACELI ISOFLEX LOW AIRLOSS BED. PT TO BE TURNED AND REPOSITIONED EVERY 2HRS PT CONDITION PERMITS,HEELS FLOATED. WILL SEE PRN. IN AGREEMENT WITH PLAN OF CARE.
[2017-02-02] MEDS ORDERED: AZTREONAM 500 MG in IV NS 0.9% 50 ML IV SCH (13:00)
[2017-02-02 16:00] VITALS: BP 105/58
[2017-02-02] MEDS ORDERED: FEE PK DOSING 1 MIN EA MC ONE (18:48)
--- NOTE | 2017-02-02 18:57 | NUR ---
TELE / RN CLOSING NOTES PATIENT IS IN BED. ALERT AND ORIENTED TO NAME, PLACE AND TIME. BREATHING EVEN AND UNLABORED. ON 4LPM O2 VIA NC, NO SIGNS AND SYMPTOMS OF SHORTNESS OF BREATH OR DISTRESS NOTED. DENIES PAIN. ON TELE MONITOR SHOWING AV AND V-PACING WITH HEART RATE AT 75. MOFFETT IN PLACE AND DRAINING WELL. IV SITE RAC TKO IS INTACT AND PATENT. TURNED/REPOSITIONED PT Q2H, EXTREMITIES OFFLOADED. BED IN LOW AND IN LOCKED POSITION WITH CALL LIGHT IN REACH. TWO SIDE RAILS ARE UP. WILL ENDORSED TO JOB ORDER CLERK NURSE TO JACKIE.
[2017-02-02] MEDS ORDERED: MEROPENEM 500 MG in IV NS 0.9% 50 ML IV SCH ×4 (19:00)
--- NOTE | 2017-02-02 19:05 | NUR ---
RN NOTE RECEIVE REPORT. PT AAOX3, NO S/S OR C/O ANY PAIN OR DISCOMFORT. BREATHING NON-LABORED AND EVEN ON NC 4L. TELE- AV/V PACING IN 70'S. IV INTACT AND PATENT S/L. F/C DRAINING. CALL LIGHT IN REACH, WILL CONT TO MONITOR.
[2017-02-02 20:00] VITALS: BP 97/55
[2017-02-02] MEDS: MEROPENEM 500 MG in IV NS 0.9% 50 ML IV SCH (20:17)
[2017-02-02] MEDS: TAMSULOSIN 0.4 MG CAP.SR.24H PO SCH (21:25)
[2017-02-02] MEDS: ATORVASTATIN 10 MG TABLET PO SCH (21:25)
[2017-02-02] MEDS: DIVALPROEX SODIUM 250 MG TABLET.DR PO SCH (21:25)
[2017-02-02] MEDS: PRIMIDONE 50 MG TABLET PO SCH (21:25)
[2017-02-02] MEDS: VANCOMYCIN 1 GM in IV D5W 250 ML IV SCH (21:25)
[2017-02-02] MEDS ORDERED: LEVOFLOXACIN 250 MG /D5W 50 ML 250 MG in PREMIX 1 EA IV SCH (23:00)
--- NOTE | 2017-02-03 06:52 | NUR ---
RN NOTE NO SIGNIFICANT CHANGES OVERNIGHT, PT SLEPT WELL. AAOX3, NO S/S OF ANY DISTRESS AT THIS TIME, NO SOB NOTED. IV INTACT AND PATENT. F/C DRAINING YELLOW FLUID. ALL NEEDS ATTENDED TO, WILL F/U WITH DAY SHIFT FOR JACKIE.
--- NOTE | 2017-02-03 07:09 | NUR ---
RN OPEN NOTES RECEIVED REPORT FROM FORENSIC NURSE NURSE. WILL CONTINUE TO ASSESS AND MONITOR PATIENT THROUGH OUT MY SHIFT.
[2017-02-03 07:43] LABS: BASOPHILS % (AUTO) 0.3 % (0.0-2.0); EOSINOPHILS # (AUTO) 0.2 /CMM (0.0-0.7); EOSINOPHILS % (AUTO) 3.1 % (0.0-6.0); HEMATOCRIT 34 % (39-51); HEMOGLOBIN 11.6 g/dL (13.5-17.5); LYMPHOCYTES # (AUTO) 1.1 /CMM (0.8-4.8); LYMPHOCYTES % (AUTO) 15.4 % (20.0-44.0); MEAN CORPUSCULAR HEMOGLOBIN 31 PG (26.0-33.0); MEAN CORPUSCULAR HGB CONC 34 g/dl (31.0-36.0); MEAN CORPUSCULAR VOLUME 89 fL (80-96); MONOCYTES # (AUTO) 1.1 /CMM (0.1-1.30); MONOCYTES % (AUTO) 14.6 % (2.0-12.0); NEUTROPHILS % (AUTO) 66.6 % (43.0-81.0); PLATELET COUNT (AUTO) 113 /CMM (150-450); RDW COEFFICIENT OF VARIATION 14.8 (11.5-15.0); RED BLOOD CELL COUNT(AUTO) 3.81 MIL/uL (4.5-6.0); WHITE BLOOD COUNT (AUTO) 7.4 K/uL (4.3-11.0)
[2017-02-03 08:00] VITALS: BP_SYST 110; BP_SYST 164; BP_DIAS 67; BP_DIAS 99
[2017-02-03] MEDS: MEROPENEM 500 MG in IV NS 0.9% 50 ML IV SCH ×2 (08:16→20:07)
[2017-02-03] MEDS: PANTOPRAZOLE 40 MG TABLET.DR PO SCH (08:17)
[2017-02-03] MEDS: PRIMIDONE 250 MG TABLET PO SCH ×3 (08:17→17:13)
[2017-02-03] MEDS: GABAPENTIN 300 MG CAPSULE PO SCH ×3 (08:17→17:13)
[2017-02-03] MEDS: ASCORBIC ACID 500 MG TABLET PO SCH (08:17)
[2017-02-03] MEDS: NEOMY SULF/BACITRAC ZN/POLY 15 GM TUBE TP SCH (08:17)
[2017-02-03] MEDS: DULOXETINE HCL 30 MG CAPSULE.DR PO SCH (08:17)
[2017-02-03] MEDS: ASPIRIN 81 MG TAB.CHEW PO SCH (08:17)
[2017-02-03] MEDS: DIVALPROEX SODIUM 125 MG CAP.SPRINK PO SCH ×2 (08:17→17:13)
[2017-02-03] MEDS: DUTASTERIDE (0.5 MG) 0.5 MG CAPSULE PO SCH (08:17)
[2017-02-03] MEDS: FOLIC ACID 1 MG TABLET PO SCH (08:17)
[2017-02-03] MEDS: ACIDOPHILUS/BULGARICUS 1 EACH TAB.CHEW PO SCH ×2 (08:17→17:13)
[2017-02-03] MEDS: CARVEDILOL 3.125 MG TABLET PO SCH ×2 (08:18→17:14)
[2017-02-03 08:24] LABS: CALCIUM, SERUM 8.6 mg/dL (8.5-10.1); CARBON DIOXIDE 28 mmol/L (21-32); CHLORIDE 100 mmol/L (98-107); CREATININE 1.9 mg/dL (0.6-1.3); GLUCOSE 167 mg/dL (74-106); MAGNESIUM 2.1 mg/dL (1.8-2.4); PHOSPHORUS 3.2 mg/dL (2.5-4.9); POTASSIUM 3.8 mmol/L (3.5-5.1); SODIUM SERUM 137 mmol/L (136-145); UREA NITROGEN, BLOOD 43 mg/dL (7-18)
--- NOTE | 2017-02-03 09:00 | NUR ---
DR MORRIS AT BEDSIDE.
--- NOTE | 2017-02-03 09:05 | NUR ---
OXYGEN LEVEL REDUCED TO 3L, NC. SATURATION IS 88%
[2017-02-03] MEDS ORDERED: ALBUTEROL HALF STRENGTH 1.25 MG/3 ML VIAL.NEB NEB SCH (09:30)
[2017-02-03] MEDS ORDERED: ALBUTEROL FS 2.5 MG/0.5 ML VIAL.NEB NEB SCH (09:30)
[2017-02-03] MEDS: IPRATROPIUM NEB FS 0.5 MG/2.5 ML AMPUL.NEB NEB SCH ×5 (09:30→23:34)
--- NOTE | 2017-02-03 10:00 | NUR ---
O2 RECHECKED, 94% ON NC 3L
--- NOTE | 2017-02-03 10:34 | NUR ---
RT NOTIFIED ABOUT BREATHING TENEMENT NEEDED
[2017-02-03] MEDS: ALBUTEROL FS 2.5 MG/0.5 ML VIAL.NEB NEB SCH ×4 (10:47→23:34)
[2017-02-03] MEDS: ENOXAPARIN SODIUM 30 MG/0.3 ML DISP.SYRIN SQ SCH (10:52)
[2017-02-03] MEDS: methylPREDNISolone SOD SUCC 125 MG/2ML VIAL IV SCH (11:03)
--- NOTE | 2017-02-03 11:07 | NUR ---
RECHECK OXYGEN AFTER BREATHING TREATMENT. 99% ON 3L NC
[2017-02-03 11:10] LABS: CHOLESTEROL 202 mg/dL (<200); HDL CHOLESTEROL 19 mg/dL (40-60); LDL 125 mg/dL (0-99); TRIGLYCERIDES 248 mg/dL (30-150)
[2017-02-03 16:00] VITALS: BP 106/64
--- NOTE | 2017-02-03 18:00 | NUR ---
IV WAS LEAKING. NEW IV STARTED. PATIENT TOLERATED PROCEDURE WELL. OLD IV SITE REMOVED
--- NOTE | 2017-02-03 18:35 | NUR ---
M/S RN CLOSING NOTES PATIENT IS IN BED. ALERT AND ORIENTED TO NAME, PLACE AND TIME. BREATHING EVEN AND UNLABORED. ON 3LPM O2 VIA NC, NO SIGNS AND SYMPTOMS OF SHORTNESS OF BREATH OR DISTRESS NOTED. DENIES PAIN. MOFFETT IN PLACE AND DRAINING WELL. IV SITE R WRIST 24G TKO IS INTACT AND PATENT. TURNED/REPOSITIONED PT Q2H, EXTREMITIES OFFLOADED. BED IN LOW AND IN LOCKED POSITION WITH CALL LIGHT IN REACH. TWO SIDE RAILS ARE UP. PATIENT KEPT DRY AND CLEAN. WILL ENDORSED TO OCCUPATIONAL THERAPIST AIDE NURSE TO [facility].
--- NOTE | 2017-02-03 19:10 | NUR ---
RN NOTE RECEIVED REPORT. PT AAOX3, NO S/S OR C/O ANY DISTRESS OR DISCOMFORT AT THIS TIME. BREATHING NON-LABORED AND EVEN. IV INTACT AND PATENT S/L. ALL NEEDS ATTENED TO, WILL CONT TO MONITOR.
[2017-02-03 20:00] VITALS: BP 108/60
[2017-02-03] MEDS: VANCOMYCIN 1 GM in IV D5W 250 ML IV SCH (21:27)
[2017-02-03] MEDS: ATORVASTATIN 10 MG TABLET PO SCH (21:28)
[2017-02-03] MEDS: PRIMIDONE 50 MG TABLET PO SCH (21:28)
[2017-02-03] MEDS: DIVALPROEX SODIUM 250 MG TABLET.DR PO SCH (21:28)
[2017-02-03] MEDS: TAMSULOSIN 0.4 MG CAP.SR.24H PO SCH (21:28)
[2017-02-04] MEDS: IPRATROPIUM NEB FS 0.5 MG/2.5 ML AMPUL.NEB NEB SCH ×6 (03:17→23:30)
[2017-02-04] MEDS: ALBUTEROL FS 2.5 MG/0.5 ML VIAL.NEB NEB SCH ×6 (03:17→23:30)
[2017-02-04 06:44] LABS: BASOPHILS % (AUTO) 0.3 % (0.0-2.0); EOSINOPHILS # (AUTO) 0.2 /CMM (0.0-0.7); EOSINOPHILS % (AUTO) 2.6 % (0.0-6.0); HEMATOCRIT 32 % (39-51); HEMOGLOBIN 10.6 g/dL (13.5-17.5); LYMPHOCYTES # (AUTO) 1.4 /CMM (0.8-4.8); LYMPHOCYTES % (AUTO) 15.4 % (20.0-44.0); MEAN CORPUSCULAR HEMOGLOBIN 29 PG (26.0-33.0); MEAN CORPUSCULAR HGB CONC 33 g/dl (31.0-36.0); MEAN CORPUSCULAR VOLUME 88 fL (80-96); MONOCYTES # (AUTO) 1.3 /CMM (0.1-1.30); MONOCYTES % (AUTO) 14.1 % (2.0-12.0); NEUTROPHILS # (AUTO) 6.2 /CMM (1.8-8.9); NEUTROPHILS % (AUTO) 67.6 % (43.0-81.0); PLATELET COUNT (AUTO) 130 /CMM (150-450); RDW COEFFICIENT OF VARIATION 14.8 (11.5-15.0); RED BLOOD CELL COUNT(AUTO) 3.66 MIL/uL (4.5-6.0); WHITE BLOOD COUNT (AUTO) 9.1 K/uL (4.3-11.0)
--- NOTE | 2017-02-04 06:46 | NUR ---
RN NOTE NO SIGNIFICANT EVENTS OVERNIGHT - PT SLEPT WELL. AAOX3, NO S/S OR C/O ANY PAIN OR DISCOMFORT. BREATHING EVEN AND NON-LABORED ON NC 3L. IV INTACT AND PATENT S/L. F/C DRAINING YELLOW FLUID. ALL NEEDS ATTENDED TO, WILL F/U WITH DAY SHIFT FOR JACKIE.
--- NOTE | 2017-02-04 07:30 | NUR ---
RN OPEN NOTES RECEIVED REPORT FROM PERIOPERATIVE NURSE NURSE. WILL CONTINUE TO MONITOR AND ASSESS PATIENT THROUGH OUT MY SHIFT
[2017-02-04 07:31] LABS: ALANINE AMINOTRANSFERASE 22 U/L (12-78); ALBUMIN 2.4 g/dL (3.4-5.0); ALKALINE PHOSPHATASE 94 U/L (46-116); ASPARTATE AMINOTRANSFERASE 16 U/L (15-37); BILIRUBIN,TOTAL 0.2 mg/dL (0.2-1.0); CALCIUM, SERUM 8.6 mg/dL (8.5-10.1); CARBON DIOXIDE 29 mmol/L (21-32); CHLORIDE 96 mmol/L (98-107); CREATININE 1.8 mg/dL (0.6-1.3); GLUCOSE 173 mg/dL (74-106); PHOSPHORUS 3.9 mg/dL (2.5-4.9); POTASSIUM 3.1 mmol/L (3.5-5.1); SODIUM SERUM 130 mmol/L (136-145); TOTAL PROTEIN, SERUM 7.5 g/dL (6.4-8.2); UREA NITROGEN, BLOOD 49 mg/dL (7-18)
[2017-02-04 08:00] VITALS: BP 109/46
[2017-02-04] MEDS: MEROPENEM 500 MG in IV NS 0.9% 50 ML IV SCH ×2 (08:51→20:28)
[2017-02-04] MEDS: PANTOPRAZOLE 40 MG TABLET.DR PO SCH (08:52)
[2017-02-04] MEDS: DIVALPROEX SODIUM 125 MG CAP.SPRINK PO SCH ×2 (08:52→16:03)
[2017-02-04] MEDS: DULOXETINE HCL 30 MG CAPSULE.DR PO SCH (08:52)
[2017-02-04] MEDS: FOLIC ACID 1 MG TABLET PO SCH (08:52)
[2017-02-04] MEDS: PRIMIDONE 250 MG TABLET PO SCH ×3 (08:52→16:03)
[2017-02-04] MEDS: ACIDOPHILUS/BULGARICUS 1 EACH TAB.CHEW PO SCH ×2 (08:52→16:03)
[2017-02-04] MEDS: ASPIRIN 81 MG TAB.CHEW PO SCH (08:52)
[2017-02-04] MEDS: ASCORBIC ACID 500 MG TABLET PO SCH (08:52)
[2017-02-04] MEDS: GABAPENTIN 300 MG CAPSULE PO SCH ×3 (08:52→16:03)
[2017-02-04] MEDS: DUTASTERIDE (0.5 MG) 0.5 MG CAPSULE PO SCH (08:52)
[2017-02-04] MEDS: NEOMY SULF/BACITRAC ZN/POLY 15 GM TUBE TP SCH (08:53)
[2017-02-04] MEDS: FUROSEMIDE 40 MG/4 ML VIAL IV SCH ×3 (08:53→15:26)
[2017-02-04] MEDS: methylPREDNISolone SOD SUCC 125 MG/2ML VIAL IV SCH (08:53)
[2017-02-04] MEDS: POTASSIUM CHLORIDE 20 MEQ TAB.PRT.SR PO SCH ×3 (08:53→12:28)
[2017-02-04] MEDS: CARVEDILOL 3.125 MG TABLET PO SCH ×2 (08:59→17:00)
[2017-02-04] MEDS ORDERED: methylPREDNISolone SOD SUCC 125 MG/2ML VIAL IV SCH (09:00)
[2017-02-04] MEDS: ENOXAPARIN SODIUM 30 MG/0.3 ML DISP.SYRIN SQ SCH (09:12)
[2017-02-04 16:00] VITALS: BP 102/57
--- NOTE | 2017-02-04 19:30 | NUR ---
RN NOTES RECEIVED PT AWAKE, HOB ELEVATED, NO SOB, NOT IN DISTRESS OMN 3LPM O2 AND TOLERATED WELL. PT ALERT AND ORIENTED X3, DENIES ANY PAIN AND DISCOMFORT AT THIS TIME. IV ACCESS ON RIGHT FOREARM PATENT AND INTACT, NO SIGNS OF INFILTRATE NOTED. MOFFETT CATH INTACT WITH CLEAR, YELLOW URINE OUT PUT NOTED. KEPT PT COMFORTABLE AND ATTENDED. KEPT BED IN THE LOWEST POSITION, LOCKED, SIDE RAILS UP X2, WITH CALL LIGHT WITH IN REACH. WILL CONTINUE TO MONITOR PT.
--- NOTE | 2017-02-04 19:59 | NUR ---
M/S RN CLOSING NOTES GAVE REPORT TO NURSE SUPERVISOR NURSE. PATIENT IS IN BED. ALERT AND ORIENTED TO NAME, PLACE AND TIME. BREATHING EVEN AND UNLABORED. ON 3LPM O2 VIA NC, NO SIGNS AND SYMPTOMS OF SHORTNESS OF BREATH OR DISTRESS NOTED. DENIES PAIN. MOFFETT IN PLACE AND DRAINING WELL. IV SITE R WRIST 24G TKO IS INTACT AND PATENT. TURNED/REPOSITIONED PT Q2H, EXTREMITIES OFFLOADED. BED IN LOW AND IN LOCKED POSITION WITH CALL LIGHT IN REACH. TWO SIDE RAILS ARE UP. PATIENT KEPT DRY AND CLEAN.
[2017-02-04 20:00] VITALS: BP 101/58
[2017-02-04] MEDS: VANCOMYCIN 1 GM in IV D5W 250 ML IV SCH (21:25)
[2017-02-04] MEDS: PRIMIDONE 50 MG TABLET PO SCH (21:27)
[2017-02-04] MEDS: ATORVASTATIN 10 MG TABLET PO SCH (21:27)
[2017-02-04] MEDS: TAMSULOSIN 0.4 MG CAP.SR.24H PO SCH (21:27)
[2017-02-04] MEDS: DIVALPROEX SODIUM 250 MG TABLET.DR PO SCH (21:35)
[2017-02-04 22:00] VITALS: BP 101/58
[2017-02-05] MEDS: IPRATROPIUM NEB FS 0.5 MG/2.5 ML AMPUL.NEB NEB SCH ×6 (03:16→23:30)
[2017-02-05] MEDS: ALBUTEROL FS 2.5 MG/0.5 ML VIAL.NEB NEB SCH ×6 (03:16→23:30)
[2017-02-05 07:18] LABS: BASOPHILS % (AUTO) 0.3 % (0.0-2.0); EOSINOPHILS # (AUTO) 0.2 /CMM (0.0-0.7); EOSINOPHILS % (AUTO) 2.1 % (0.0-6.0); HEMATOCRIT 32 % (39-51); HEMOGLOBIN 10.7 g/dL (13.5-17.5); LYMPHOCYTES # (AUTO) 1.1 /CMM (0.8-4.8); LYMPHOCYTES % (AUTO) 13.5 % (20.0-44.0); MEAN CORPUSCULAR HEMOGLOBIN 30 PG (26.0-33.0); MEAN CORPUSCULAR HGB CONC 34 g/dl (31.0-36.0); MEAN CORPUSCULAR VOLUME 87 fL (80-96); MONOCYTES # (AUTO) 1.2 /CMM (0.1-1.30); MONOCYTES % (AUTO) 15.2 % (2.0-12.0); NEUTROPHILS # (AUTO) 5.5 /CMM (1.8-8.9); NEUTROPHILS % (AUTO) 68.9 % (43.0-81.0); PLATELET COUNT (AUTO) 134 /CMM (150-450); RDW COEFFICIENT OF VARIATION 14.4 (11.5-15.0); RED BLOOD CELL COUNT(AUTO) 3.62 MIL/uL (4.5-6.0); WHITE BLOOD COUNT (AUTO) 7.9 K/uL (4.3-11.0)
--- NOTE | 2017-02-05 07:29 | NUR ---
RN NOTES PT ASLEEP, HOB ELEVATED, BREATHING REGULAR AND UNLABORED, NO SIGNS OF DISTRESS AND DISCOMFORT NOTED. ON 3LPM O2 VIA NC WITH GOOD SATURATION. VITAL SIGNS STABLE, AFEBRILE. NO EPISODE OF NAUSEA AND VOMITING. NO COMPLAIN OF CHEST PAIN. ALL DUE MEDS GIVEN. KEPT CLEAN AND DRY. ALL NEEDS ATTENDED. TURNED AND REPOSITION Q2H. NO SIGNIFICANT CHANGE IN CONDITION NOTED. ENDORSED TO MORNING RN FOR CONTINUITY OF CARE.
[2017-02-05 07:35] LABS: ALANINE AMINOTRANSFERASE 23 U/L (12-78); ALBUMIN 2.4 g/dL (3.4-5.0); ALKALINE PHOSPHATASE 92 U/L (46-116); ASPARTATE AMINOTRANSFERASE 15 U/L (15-37); BILIRUBIN,TOTAL 0.3 mg/dL (0.2-1.0); CALCIUM, SERUM 8.4 mg/dL (8.5-10.1); CARBON DIOXIDE 31 mmol/L (21-32); CHLORIDE 99 mmol/L (98-107); GLUCOSE 196 mg/dL (74-106); MAGNESIUM 1.9 mg/dL (1.8-2.4); PHOSPHORUS 3.6 mg/dL (2.5-4.9); POTASSIUM 3.6 mmol/L (3.5-5.1); SODIUM SERUM 137 mmol/L (136-145); TOTAL PROTEIN, SERUM 7.7 g/dL (6.4-8.2); UREA NITROGEN, BLOOD 53 mg/dL (7-18)
--- NOTE | 2017-02-05 07:35 | NUR ---
MS RN RECEIVED ON BED, AWAKE,ALERT,ORIENTED X3,NOT IN ANY FORM OF DISTRESS, RESPIRATIONS EVEN AND UNLABORED,NO SOB NOTED. ABDOMEN SOFT, POSITIVE BOWEL SOUNDS, DENIES PAIN AT THIS TIME, WILL MONITOR PATIENT'S CONDITION.
[2017-02-05 08:00] VITALS: BP 110/57
--- NOTE | 2017-02-05 08:10 | NUR ---
MS RN WAS SEEN BY DR. MARSHALL Narayan/ ORDERS MADE AND CARRIED OUT.
[2017-02-05] MEDS: CARVEDILOL 3.125 MG TABLET PO SCH ×2 (09:00→17:00)
--- NOTE | 2017-02-05 09:00 | NUR ---
MS SANDY BREAKFAST SERVED,DUE MEDS GIVEN, TOLERATED WELL.
[2017-02-05] MEDS: PRIMIDONE 250 MG TABLET PO SCH ×3 (09:21→17:46)
[2017-02-05] MEDS: DIVALPROEX SODIUM 125 MG CAP.SPRINK PO SCH ×2 (09:21→17:46)
[2017-02-05] MEDS: GABAPENTIN 300 MG CAPSULE PO SCH ×3 (09:21→17:46)
[2017-02-05] MEDS: FOLIC ACID 1 MG TABLET PO SCH (09:21)
[2017-02-05] MEDS: DULOXETINE HCL 30 MG CAPSULE.DR PO SCH (09:21)
[2017-02-05] MEDS: ASPIRIN 81 MG TAB.CHEW PO SCH (09:21)
[2017-02-05] MEDS: ASCORBIC ACID 500 MG TABLET PO SCH (09:21)
[2017-02-05] MEDS: ACIDOPHILUS/BULGARICUS 1 EACH TAB.CHEW PO SCH ×2 (09:22→17:45)
[2017-02-05] MEDS: methylPREDNISolone SOD SUCC 125 MG/2ML VIAL IV SCH (09:22)
[2017-02-05] MEDS: DUTASTERIDE (0.5 MG) 0.5 MG CAPSULE PO SCH (09:22)
[2017-02-05] MEDS: POTASSIUM CHLORIDE 20 MEQ TAB.PRT.SR PO SCH ×3 (09:23→17:46)
[2017-02-05] MEDS: MEROPENEM 500 MG in IV NS 0.9% 50 ML IV SCH ×2 (09:31→20:17)
[2017-02-05] MEDS: PANTOPRAZOLE 40 MG TABLET.DR PO SCH (09:31)
[2017-02-05] MEDS: PROSOURCE / PROSTAT (PYXIS) 30 ML UDC GT SCH (09:31)
[2017-02-05] MEDS: FUROSEMIDE 100 MG/10 ML VIAL IV SCH ×3 (09:32→16:30)
[2017-02-05] MEDS: ENOXAPARIN SODIUM 30 MG/0.3 ML DISP.SYRIN SQ SCH (09:33)
[2017-02-05] MEDS: NEOMY SULF/BACITRAC ZN/POLY 15 GM TUBE TP SCH (09:36)
--- NOTE | 2017-02-05 10:00 | NUR ---
MS RN WAS SEEN BY DR. MORRIS W/ ORDERS MADE AND CARRIED OUT.
[2017-02-05 16:00] VITALS: BP 106/68
[2017-02-05] MEDS ORDERED: FUROSEMIDE 100 MG/10 ML VIAL IV ONE (18:00)
--- NOTE | 2017-02-05 18:21 | NUR ---
MS RN ON BED, NO DISTRESS NOTED ,WILL ENDORSE TO ASP DEVELOPER FOR CONTINUITY OF CARE.
--- NOTE | 2017-02-05 19:15 | NUR ---
RN NOTES RECEIVED PT AWAKE, HOB ELEVATED, NO SOB, NOT IN DISTRESS OMN 3LPM O2 AND TOLERATED WELL. PT ALERT AND ORIENTED X3, DENIES ANY PAIN AND DISCOMFORT AT THIS TIME. PT NOTED COUGH AT TIMES, NON PRODUCTIVE. IV ACCESS ON RIGHT FOREARM PATENT AND INTACT, NO SIGNS OF INFILTRATE NOTED. MOFFETT CATH INTACT WITH CLEAR, YELLOW URINE OUT PUT NOTED. KEPT PT COMFORTABLE AND ATTENDED. KEPT BED IN THE LOWEST POSITION, LOCKED, SIDE RAILS UP X2, WITH CALL LIGHT WITH IN REACH. WILL CONTINUE TO MONITOR PT.
[2017-02-05 20:42] VITALS: BP 102/53
[2017-02-05] MEDS: DIVALPROEX SODIUM 250 MG TABLET.DR PO SCH (21:49)
[2017-02-05] MEDS: TAMSULOSIN 0.4 MG CAP.SR.24H PO SCH (21:50)
[2017-02-05] MEDS: PRIMIDONE 50 MG TABLET PO SCH (21:50)
[2017-02-05] MEDS: ATORVASTATIN 10 MG TABLET PO SCH (21:50)
[2017-02-05 22:00] VITALS: BP 102/53
[2017-02-06] MEDS: IPRATROPIUM NEB FS 0.5 MG/2.5 ML AMPUL.NEB NEB SCH ×6 (03:30→22:59)
[2017-02-06] MEDS: ALBUTEROL FS 2.5 MG/0.5 ML VIAL.NEB NEB SCH ×6 (03:30→22:59)
--- NOTE | 2017-02-06 07:12 | NUR ---
RN NOTES PT ASLEEP, HOB ELEVATED, BREATHING REGULAR AND UNLABORED, NO SIGNS OF DISTRESS AND DISCOMFORT NOTED. ON 3LPM O2 VIA NC WITH GOOD SATURATION. PT COUGH AT TIMES, NON PRODUCTIVE, UNABLE TO EXPECTORATE SECRETIONS. VITAL SIGNS STABLE, AFEBRILE. NO EPISODE OF NAUSEA AND VOMITING. NO COMPLAIN OF CHEST PAIN. ALL DUE MEDS GIVEN. KEPT CLEAN AND DRY, SKIN CARE AND WOUND CARE DONE. ALL NEEDS ATTENDED. TURNED AND REPOSITION Q2H. PLACED ON CONTACT ISOLATION FOR ESBL OF URINE. WILL ENDORSE TO MORNING RN FOR CONTINUITY OF CARE.
--- NOTE | 2017-02-06 07:30 | NUR ---
RN MS NOTES PT IN BED, AWAKE, ALERT AND ORIENTED, NO COMPLAINT OF PAIN OR ANY DISCOMFORT, BREATHING PATTERN NORMAL, CALL LIGHT WITHIN REACH, CONTACT ISOLATION PRECAUTIONS OBSERVED, F/C IN PLACE, DRAINING WELL WITH CLEAR, YELLOW URINE, ASSISTED WITH BREAKFAST.
[2017-02-06 07:32] LABS: BASOPHILS % (AUTO) 0.3 % (0.0-2.0); EOSINOPHILS # (AUTO) 0.2 /CMM (0.0-0.7); EOSINOPHILS % (AUTO) 2.4 % (0.0-6.0); HEMATOCRIT 32 % (39-51); HEMOGLOBIN 10.7 g/dL (13.5-17.5); LYMPHOCYTES # (AUTO) 1.3 /CMM (0.8-4.8); LYMPHOCYTES % (AUTO) 18.8 % (20.0-44.0); MEAN CORPUSCULAR HEMOGLOBIN 29 PG (26.0-33.0); MEAN CORPUSCULAR HGB CONC 33 g/dl (31.0-36.0); MEAN CORPUSCULAR VOLUME 87 fL (80-96); MONOCYTES % (AUTO) 14.5 % (2.0-12.0); NEUTROPHILS # (AUTO) 4.4 /CMM (1.8-8.9); PLATELET COUNT (AUTO) 146 /CMM (150-450); RDW COEFFICIENT OF VARIATION 14.5 (11.5-15.0); RED BLOOD CELL COUNT(AUTO) 3.73 MIL/uL (4.5-6.0); WHITE BLOOD COUNT (AUTO) 6.9 K/uL (4.3-11.0)
[2017-02-06 08:00] VITALS: BP 96/58
[2017-02-06 08:17] LABS: ALANINE AMINOTRANSFERASE 28 U/L (12-78); ALBUMIN 2.5 g/dL (3.4-5.0); ALKALINE PHOSPHATASE 92 U/L (46-116); ASPARTATE AMINOTRANSFERASE 19 U/L (15-37); BILIRUBIN,TOTAL 0.3 mg/dL (0.2-1.0); CALCIUM, SERUM 8.6 mg/dL (8.5-10.1); CARBON DIOXIDE 30 mmol/L (21-32); CHLORIDE 99 mmol/L (98-107); CREATININE 2.2 mg/dL (0.6-1.3); GLUCOSE 215 mg/dL (74-106); MAGNESIUM 2.1 mg/dL (1.8-2.4); PHOSPHORUS 4.1 mg/dL (2.5-4.9); POTASSIUM 3.7 mmol/L (3.5-5.1); SODIUM SERUM 139 mmol/L (136-145); TOTAL PROTEIN, SERUM 7.9 g/dL (6.4-8.2); UREA NITROGEN, BLOOD 67 mg/dL (7-18)
[2017-02-06] MEDS: ASPIRIN 81 MG TAB.CHEW PO SCH (08:54)
[2017-02-06] MEDS: GABAPENTIN 300 MG CAPSULE PO SCH ×3 (08:54→17:13)
[2017-02-06] MEDS: DULOXETINE HCL 30 MG CAPSULE.DR PO SCH (08:54)
[2017-02-06] MEDS: FOLIC ACID 1 MG TABLET PO SCH (08:54)
[2017-02-06] MEDS: DIVALPROEX SODIUM 125 MG CAP.SPRINK PO SCH ×2 (08:54→17:13)
[2017-02-06] MEDS: PRIMIDONE 250 MG TABLET PO SCH ×3 (08:54→17:13)
[2017-02-06] MEDS: DUTASTERIDE (0.5 MG) 0.5 MG CAPSULE PO SCH (08:54)
[2017-02-06] MEDS: ACIDOPHILUS/BULGARICUS 1 EACH TAB.CHEW PO SCH ×2 (08:54→17:13)
[2017-02-06] MEDS: ASCORBIC ACID 500 MG TABLET PO SCH (08:54)
[2017-02-06] MEDS: PANTOPRAZOLE 40 MG TABLET.DR PO SCH (08:58)
[2017-02-06] MEDS: PROSOURCE / PROSTAT (PYXIS) 30 ML UDC GT SCH (08:58)
[2017-02-06] MEDS: methylPREDNISolone SOD SUCC 125 MG/2ML VIAL IV SCH (08:58)
[2017-02-06] MEDS: MEROPENEM 500 MG in IV NS 0.9% 50 ML IV SCH ×2 (08:58→21:47)
[2017-02-06] MEDS: CARVEDILOL 3.125 MG TABLET PO SCH ×2 (09:00→17:00)
[2017-02-06] MEDS: ENOXAPARIN SODIUM 30 MG/0.3 ML DISP.SYRIN SQ SCH (09:06)
[2017-02-06] MEDS: NEOMY SULF/BACITRAC ZN/POLY 15 GM TUBE TP SCH (09:07)
--- NOTE | 2017-02-06 10:55 | NUR ---
RN MS NOTES DEBRIDEMENT OF SCALP WOUND DONE BY JOHN GARNICA AT BEDSIDE, TOLERATED PROCEDURE WELL.
[2017-02-06] MEDS: FUROSEMIDE 80 MG TABLET PO SCH (11:24)
[2017-02-06 11:25] VITALS: BP 105/83
--- NOTE | 2017-02-06 13:00 | NUR ---
PT IN BED, ASLEEP, BREATHING PATTERN NORMAL, CALL LIGHT WITHIN REACH, ASSISTED WITH LUNCH, TOLERATING CURRENT DIET WELL, ASSISTED IN TURNING AND REPOSITIONING, NEEDS ATTENDED.
[2017-02-06] MEDS: HYDROGEL DRESSING 90 GM TUBE TP SCH (15:02)
[2017-02-06 16:00] VITALS: BP 97/62
--- NOTE | 2017-02-06 18:00 | NUR ---
RN Notes Patient slept most of the day, awakenenig easily when name spoke. Cheerful and enjoying the company of the nurse. MD. in to do debridment of the wound on top of head. Wound clean and redressed as ordered. Good appetie. Contact Isolation maintained
--- NOTE | 2017-02-06 19:38 | NUR ---
MS/RN OPENING NOTES PATIENT IN BED, RESTING COMFORTABLY. NO S/S OF DISCOMFORT. ON OXYGEN VIA NC ORDER, [id number] WILL MONITOR. ON ZUHAIR WING, ON ISOLATION DUE TO ESBL URINE, WOUND CARE S/P HEAD DEBRIDEMENT TO APPLY TREATMENT AND SACRAL AND LEFT HEEL REDNESS. IV SITE ON RFA GAUGE 20. RECEIVED ENDORSEMENT FROM AM RN TO CONTINUE PLAN OF CARE. BED IN LOCK POSITION CALL LIGHT WITHIN REACH.
[2017-02-06 19:58] VITALS: BP 105/50
[2017-02-06 20:00] VITALS: BP 105/50
[2017-02-06] MEDS: ATORVASTATIN 10 MG TABLET PO SCH (21:54)
[2017-02-06] MEDS: DIVALPROEX SODIUM 250 MG TABLET.DR PO SCH (21:54)
[2017-02-06] MEDS: PRIMIDONE 50 MG TABLET PO SCH (21:54)
[2017-02-06] MEDS: TAMSULOSIN 0.4 MG CAP.SR.24H PO SCH (21:54)
[2017-02-07] MEDS: IPRATROPIUM NEB FS 0.5 MG/2.5 ML AMPUL.NEB NEB SCH ×4 (02:31→15:18)
[2017-02-07] MEDS: ALBUTEROL FS 2.5 MG/0.5 ML VIAL.NEB NEB SCH ×4 (02:31→15:18)
--- NOTE | 2017-02-07 06:07 | NUR ---
314-2 PATIENT ABLE TO SLEEP DURING THE NIGHT. NO S/S OF DISCOMFORT. RESPIRATION EVEN AND UNLABORED. SKIN WARM TO TOUCH. REPOSITION FOR COMFORT EXTENSIVE ASSISTANCE REQUIRE IN TURNING AND REPOSITION. BED IN LOCK POSITION ,MOFFETT W/ URINE OUTPUT. WILL CONTINUE TO MONITOR.
[2017-02-07 07:04] LABS: BASOPHILS % (AUTO) 0.3 % (0.0-2.0); EOSINOPHILS # (AUTO) 0.1 /CMM (0.0-0.7); EOSINOPHILS % (AUTO) 2.1 % (0.0-6.0); HEMATOCRIT 31 % (39-51); HEMOGLOBIN 10.4 g/dL (13.5-17.5); LYMPHOCYTES # (AUTO) 1.3 /CMM (0.8-4.8); LYMPHOCYTES % (AUTO) 18.8 % (20.0-44.0); MEAN CORPUSCULAR HEMOGLOBIN 29 PG (26.0-33.0); MEAN CORPUSCULAR HGB CONC 34 g/dl (31.0-36.0); MEAN CORPUSCULAR VOLUME 87 fL (80-96); MONOCYTES % (AUTO) 14.1 % (2.0-12.0); NEUTROPHILS # (AUTO) 4.6 /CMM (1.8-8.9); NEUTROPHILS % (AUTO) 64.7 % (43.0-81.0); PLATELET COUNT (AUTO) 152 /CMM (150-450); RDW COEFFICIENT OF VARIATION 14.2 (11.5-15.0); RED BLOOD CELL COUNT(AUTO) 3.58 MIL/uL (4.5-6.0); WHITE BLOOD COUNT (AUTO) 7.1 K/uL (4.3-11.0)
[2017-02-07 07:15] LABS: CALCIUM, SERUM 8.5 mg/dL (8.5-10.1); CARBON DIOXIDE 34 mmol/L (21-32); CHLORIDE 99 mmol/L (98-107); CREATININE 2.1 mg/dL (0.6-1.3); GLUCOSE 277 mg/dL (74-106); POTASSIUM 3.7 mmol/L (3.5-5.1); SODIUM SERUM 139 mmol/L (136-145); UREA NITROGEN, BLOOD 69 mg/dL (7-18)
--- NOTE | 2017-02-07 07:55 | NUR ---
RN MS NOTES PATIENT ALERT AND ORIENTED X3, HARD OF HEARING, NO DISTRESS NOTED, BREATHING EVEN AND UNLABORED, NO SOB, PIV PATENT AND FLUSHES WELL, KEPT SKIN CLEAN AND DRY, TURNED AND REPOSITIONED, NEEDS ATTENDED AND MET, CALL LIGHT WITHIN REACH, BED LOW AND LOCKED, SIDERAILS X2 UP, WILL CONTINUE TO MONITOR.
[2017-02-07 08:00] VITALS: BP 97/53
[2017-02-07] MEDS: PANTOPRAZOLE 40 MG TABLET.DR PO SCH (08:23)
[2017-02-07] MEDS: MEROPENEM 500 MG in IV NS 0.9% 50 ML IV SCH (08:23)
[2017-02-07] MEDS: methylPREDNISolone SOD SUCC 125 MG/2ML VIAL IV SCH (08:24)
[2017-02-07] MEDS: ASPIRIN 81 MG TAB.CHEW PO SCH (08:24)
[2017-02-07] MEDS: DIVALPROEX SODIUM 125 MG CAP.SPRINK PO SCH (08:25)
[2017-02-07] MEDS: FUROSEMIDE 80 MG TABLET PO SCH (08:26)
[2017-02-07] MEDS: ASCORBIC ACID 500 MG TABLET PO SCH (08:26)
[2017-02-07] MEDS: DUTASTERIDE (0.5 MG) 0.5 MG CAPSULE PO SCH (08:26)
[2017-02-07] MEDS: FOLIC ACID 1 MG TABLET PO SCH (08:26)
[2017-02-07] MEDS: GABAPENTIN 300 MG CAPSULE PO SCH ×2 (08:26→14:12)
[2017-02-07] MEDS: DULOXETINE HCL 30 MG CAPSULE.DR PO SCH (08:26)
[2017-02-07] MEDS: PRIMIDONE 250 MG TABLET PO SCH ×2 (08:26→14:12)
[2017-02-07] MEDS: ACIDOPHILUS/BULGARICUS 1 EACH TAB.CHEW PO SCH (08:26)
[2017-02-07] MEDS: CARVEDILOL 3.125 MG TABLET PO SCH (08:27)
[2017-02-07] MEDS: ENOXAPARIN SODIUM 30 MG/0.3 ML DISP.SYRIN SQ SCH (08:35)
[2017-02-07] MEDS: HYDROGEL DRESSING 90 GM TUBE TP SCH (08:37)
[2017-02-07] MEDS: NEOMY SULF/BACITRAC ZN/POLY 15 GM TUBE TP SCH (08:38)
[2017-02-07] MEDS: PROSOURCE / PROSTAT (PYXIS) 30 ML UDC GT SCH (08:39)
[2017-02-07 15:54] VITALS: BP 107/59
--- NOTE | 2017-02-07 16:00 | NUR ---
ASSEMBLER FAUCETS NOTES PATIENT ALERT AND ORIENTED, NO DISTRESS NOTED, ON O2 AT 3-4 LPM VIA NC WITH SPO2 > 92%, NO SOB NOTED, WOUND TREATMENT RENDERED, TURNED AND REPOSITIONED, AM CARE RENDERED, PATIENT RECEIVED DISCHARGE INSTRUCTIONS AND VERBALIZED UNDERSTANDING, GIVEN PRESCRIPTION FOR ANTIBIOTIC, PIV LEFT IN PLACED PATIENT WILL CONTINUE ON IV ANTIBIOTIC AT SNF, PATIENT REFUSED TO SIGN DISCHARGE PAPERWORKS DUE TO HAND TREMORS, WITNESSED AND SIGNED BY ANOTHER NURSE, SKIN ASSESSMENT COMPLETED, PHOTOS TAKEN, WITH NO CHANGES, DRESSING C/D/I, ALL NEEDS ATTENDED, REPORT GIVEN TO ZEUS AT [facility], PATIENT LEFT THE FACILITY ACCOMPANIED BY 2 INSIDE SALES REPRESENTATIVE.
== END 2017-02-07 16:10 | DRG 853 ==
LOC: ER 00:29 → TELE 02:30 → MED 10:41
PROVIDERS: ADMIT Internal Medicine; ATTEND Internal Medicine
PROC: 0JB00ZZ Excision of Scalp Subcutaneous Tissue and Fascia, Open Approach (ICD-10-PCS; principal; 2017-02-06)
DX: A41.9 Sepsis, unspecified organism (principal); J96.00 Acute respiratory failure, unspecified whether with hypoxia or hypercapnia; N17.0 Acute kidney failure with tubular necrosis; J69.0 Pneumonitis due to inhalation of food and vomit; I50.33 Acute on chronic diastolic (congestive) heart failure; J15.6 Pneumonia due to other Gram-negative bacteria; N18.4 Chronic kidney disease, stage 4 (severe); D68.59 Other primary thrombophilia; J44.0 Chronic obstructive pulmonary disease with (acute) lower respiratory infection; I13.0 Hypertensive heart and chronic kidney disease with heart failure and stage 1 through stage 4 chronic kidney disease, or unspecified chronic kidney disease; R53.2 Functional quadriplegia; E44.0 Moderate protein-calorie malnutrition; N39.0 Urinary tract infection, site not specified; J44.1 Chronic obstructive pulmonary disease with (acute) exacerbation; E87.1 Hypo-osmolality and hyponatremia; D63.8 Anemia in other chronic diseases classified elsewhere; E78.5 Hyperlipidemia, unspecified; E87.6 Hypokalemia; I25.10 Atherosclerotic heart disease of native coronary artery without angina pectoris; Z86.718 Personal history of other venous thrombosis and embolism; Z95.1 Presence of aortocoronary bypass graft; Z87.891 Personal history of nicotine dependence; Z86.73 Personal history of transient ischemic attack (TIA), and cerebral infarction without residual deficits; Z95.810 Presence of automatic (implantable) cardiac defibrillator; Z66 Do not resuscitate; M19.90 Unspecified osteoarthritis, unspecified site; D69.59 Other secondary thrombocytopenia; B96.20 Unspecified Escherichia coli [E. coli] as the cause of diseases classified elsewhere; E11.22 Type 2 diabetes mellitus with diabetic chronic kidney disease; Z88.0 Allergy status to penicillin; L98.9 Disorder of the skin and subcutaneous tissue, unspecified; S01.00XA Unspecified open wound of scalp, initial encounter; S51.801A Unspecified open wound of right forearm, initial encounter; X58.XXXA Exposure to other specified factors, initial encounter; Y93.9 Activity, unspecified; Y92.129 Unspecified place in nursing home as the place of occurrence of the external cause; I72.3 Aneurysm of iliac artery; E11.42 Type 2 diabetes mellitus with diabetic polyneuropathy; I25.5 Ischemic cardiomyopathy; K21.9 Gastro-esophageal reflux disease without esophagitis; Z68.30 Body mass index [BMI] 30.0-30.9, adult; R53.1 Weakness; F03.90 Unspecified dementia, unspecified severity, without behavioral disturbance, psychotic disturbance, mood disturbance, and anxiety; H35.30 Unspecified macular degeneration; Z79.84 Long term (current) use of oral hypoglycemic drugs; Z16.12 Extended spectrum beta lactamase (ESBL) resistance; R65.20 Severe sepsis without septic shock
CPT/HCPCS: 36415; 71010-TC; 78582; 80048-TC; 80053-TC; 80061-TC; 80076-TC; 81000-TC; 83605-TC; 83735-TC; 83880; 84100-TC; 84484-TC; 85025-TC; 87040-TC; 87081-TC; 87086-TC; 87186-TC; 93307-TC; 94799-TC; A4216; A4606; A6248; A6402; A9540; A9567; J1650; J1940; J1956; J2185; J2930; J3370; J3490; J7030; J7050; J7060; Z7610

== ENCOUNTER 2019-07-05 01:39 | Inpatient (IN) | payer MEDICARE, MEDICAID ==
[2019-07-05] VITALS (14 sets, daily range): BP systolic 84–133; BP diastolic 47–69
[~2019-07-05] VITALS: Ht 182.9 cm; Wt 95.3 kg
[~2019-07-05 01:39] MED LIST changes: -BLOO-668 IN; +CRAN3875 PO; +CRAN425C6 PO; +DIVA-76 PO; -DIVA250T6 PO; +DOCU-141 PO; -DOCU-25 PO; +DULO20CA19 PO; -ENOX40DI SQ; +FAMO-131 PO; -GABA-532 PO; -HYDR-4076 PO; +HYDR-4354 PO; +HYDR-500 PO; -HYDR-548 PO; -MAGN2400 PO; +MAGN24002 PO; -MELA3TAB PO; +MELA3TAB41 PO; +NITR0.4T48 SL; -NITR0.4T6 SL; -PANT40TA4 PO; -POLY15DR40 EACHEYE; +Rivaroxaban PO; +SENN-261 PO; -SENN8.6T6 PO; -ZINC220T PO
--- NOTE | 2019-07-05 01:56 | NUR ---
PT BIB RA TO ER BED 8 C/O SOB. PT'S O2 SAT WAS IN THE 60s AND 70s ACCORDING TO EMS REPORTS. PATIENT WAS ON RA UPON ARRIVL WITH O2 SAT. AT 86%. PATIENT IS PLACED ON 15L OF NON-REBREATHER AND IS CURRENTLY ON 97% O2 SATURATION. AAOX3. NOT IN ANY DISTRESS. CONNECTED TO CARIDAC MONITOR.
--- NOTE | 2019-07-05 01:59 | NUR ---
XRAY AT BEDSIDE
--- NOTE | 2019-07-05 01:59 | NUR ---
GED TUTOR AT BEDSIDE FOR CULTURES.
[2019-07-05 02:27] LABS: BASOPHILS % (AUTO) 0.3 % (0.0-2.0); EOSINOPHILS % (AUTO) 0.2 % (0.0-6.0); HEMATOCRIT 37 % (39-51); LYMPHOCYTES # (AUTO) 0.7 /CMM (0.8-4.8); LYMPHOCYTES % (AUTO) 7.1 % (20.0-44.0); MEAN CORPUSCULAR HGB CONC 33 g/dl (31.0-36.0); MEAN CORPUSCULAR VOLUME 88 fL (80-96); MONOCYTES # (AUTO) 1.3 /CMM (0.1-1.30); NEUTROPHILS % (AUTO) 79.4 % (43.0-81.0); PLATELET COUNT (AUTO) 118 /CMM (150-450); RED BLOOD CELL COUNT(AUTO) 4.15 MIL/uL (4.5-6.0); WHITE BLOOD COUNT (AUTO) 10.1 K/uL (4.3-11.0)
[2019-07-05 02:31] LABS: CALCIUM, SERUM 8.2 mg/dL (8.5-10.1); CARBON DIOXIDE 29 mmol/L (21-32); CHLORIDE 93 mmol/L (98-107); CREATININE 2.1 mg/dL (0.6-1.3); GLUCOSE 225 mg/dL (74-106); POTASSIUM 3.6 mmol/L (3.5-5.1); SODIUM SERUM 133 mmol/L (136-145); UREA NITROGEN, BLOOD 53 mg/dL (7-18)
[2019-07-05 02:37] LABS: ALANINE AMINOTRANSFERASE 18 U/L (12-78); ALBUMIN 2.7 g/dL (3.4-5.0); ALKALINE PHOSPHATASE 105 U/L (46-116); ASPARTATE AMINOTRANSFERASE 14 U/L (15-37); B-TYPE NATRIURETIC PEPTIDE 9076 PG/ML (0-125); BILIRUBIN,DIRECT 0.2 mg/dL (0.0-0.2); BILIRUBIN,TOTAL 0.6 mg/dL (0.2-1.0); TOTAL PROTEIN, SERUM 7.7 g/dL (6.4-8.2)
--- NOTE | 2019-07-05 03:56 | NUR ---
REPORT GIVEN TO LIZ SANDY FOR JACKIE.
[2019-07-05] MEDS ORDERED: BUMETANIDE INJ 6 MG in IV NS 0.9% 36 ML IV ONE (04:00)
[2019-07-05] MEDS ORDERED: ONDANSETRON HCL/PF 4 MG/2 ML VIAL IVP PRN (04:00)
[2019-07-05] MEDS ORDERED: ACETAMINOPHEN 325 MG TABLET PO PRN (04:00)
[2019-07-05] MEDS ORDERED: Z GUARD REMEDY 2 OZ OINT TP PRN (04:00)
[2019-07-05] MEDS ORDERED: HYDROCODONE/APAP 10/325MG 1 EA TABLET PO PRN (04:00)
[2019-07-05] MEDS ORDERED: DEXTROSE 50%-WATER 50 ML DISP.SYRIN IV PRN (04:00)
[2019-07-05] MEDS ORDERED: ASPIRIN 325 MG TABLET PO SCH (04:00)
--- NOTE | 2019-07-05 04:10 | NUR ---
RN NOTE RECEIVED PT FROM TRISHA SANDY FROM ER. PT CAME IN VIA TESS ACCOMPANIED BY RN AND EMT. PATIENT ON FACE MASK AT 15L. PT NON VERBAL. PHYSICALLY RESPONSIVE TO VERBAL AND TACTILE STIMULI. WITH 18G IV ON RIGHT ARM. WITH BLE EDEMA. VITAL SIGNS TAKEN. COMPREHENSIVE BODY CHECK DONE. CALL LIGHT WITHIN REACH, SAFETY MEASURES IN PLACE. WILL MONITOR.
[2019-07-05] MEDS ORDERED: BUMETANIDE INJ 0.25 MG/ML VIAL ONE ×3 (05:02→05:18)
--- NOTE | 2019-07-05 07:00 | NUR ---
RN OPENING NOTE RECEIVED PATIENT IN BED IN SEMI RENDON'S POSITION. ASLEEP AND EASILY AROUSABLE. ALERT, ORIENTED X2. PATIENT ON 15L OF O2 VIA FACE MASK. NO SIGNS OF RESPIRATORY DISTRESS, CHANGED TO CONT. O2 VIA NC @ 2LPM DUE TO PATIENT HAVING HISTORY OF COPD. NO INDICATIONS OF PAIN OR DISCOMFORT AT THIS TIME. PATIENT WITH 18G IV ON RIGHT ARM ORDERED. IV SITE WITHOUT SIGNS OF INFILTRATION OR INFECTION. SAFETY MEASURES IN PLACE. CALL LIGHT WITHIN REACH, BED LOCKED, LOW AND AT SEMI-RENDON'S POSITION. SIDE RAILS UP X3. NO PAIN NOTED AT THIS TIME. WILL CONTINUE TO MONITOR.
--- NOTE | 2019-07-05 07:27 | NUR ---
RN CLOSING NOTE PT IN BED IN SEMI RENDON'S POSITION. PT ON 15L OF O2 VIA FACEMASK. NO SIGNS OF RESPIRATORY DISTRESS. NO INDICATIONS OF PAIN OR DISCOMFORT AT THIS TIME. PT WITH 18G IV ON RIGHT ARM WITH BUMEX RUNNING ORDERED. IV SITE WITHOUT SIGNS OF INFILTRATION OR INFECTION. FLUSHES WELL. SAFETY MEASURES IN PLACE. CALL LIGHT WITHIN REACH, ENDORSED TO MORNING SHIFT FOR CONTINUITY OF CARE.
[2019-07-05] MEDS: glipiZIDE 5 MG TABLET PO SCH (07:30)
[2019-07-05] MEDS ORDERED: HYDROCODONE/APAP 10/325MG 1 EA TABLET PO SCH (09:00)
[2019-07-05] MEDS ORDERED: METOLAZONE 5 MG TABLET PO SCH (09:00)
[2019-07-05] MEDS: BLOOD SUGAR DIAGNOSTIC 1 EACH STRIP IN SCH ×4 (10:05→21:50)
[2019-07-05] MEDS: POTASSIUM CHLORIDE 20 MEQ TAB.PRT.SR PO SCH ×2 (10:55→16:32)
[2019-07-05] MEDS: ISOSORBIDE MONONITRATE (30MG) 30 MG TAB.SR.24H PO SCH (10:56)
[2019-07-05] MEDS: CARVEDILOL 3.125 MG TABLET PO SCH ×2 (10:56→16:31)
[2019-07-05] MEDS: FOLIC ACID 1 MG TABLET PO SCH (10:56)
[2019-07-05] MEDS: DULOXETINE HCL 20 MG CAPSULE.DR PO SCH (10:56)
[2019-07-05] MEDS: DIVALPROEX SODIUM 125 MG CAP.SPRINK PO SCH ×2 (10:56→16:31)
[2019-07-05] MEDS: FAMOTIDINE (20 MG) 20 MG TABLET PO SCH (10:57)
[2019-07-05] MEDS: ASPIRIN EC 81 MG TABLET.DR PO SCH (10:57)
[2019-07-05] MEDS: DUTASTERIDE (0.5 MG) 0.5 MG CAPSULE PO SCH (10:57)
[2019-07-05] MEDS: RIVAROXABAN 15 MG TABLET PO SCH ×2 (10:58→16:32)
--- NOTE | 2019-07-05 11:00 | NUR ---
RN NOTE: RETURNED NORCO 10/325MG 1 TAB TO PYXIS AND WITNESSED BY VIKA FERREIRA DUE TO MEDICATION DISCONTINUED AND PATIENT REFUSED
[2019-07-05] MEDS: PRIMIDONE 250 MG TABLET PO SCH ×3 (11:02→16:31)
[2019-07-05 11:08] LABS: ABG BASE EXCESS 1.3 mmol/L; ABG OXYGEN SATURATION 91.4 % (92.0-98.5); ABG PO2 63.5 mmHg (75.0-100.0); AaDO2 133.7 mmHg; COHb 1.2 % (0.5-1.5); MetHb 0.1 % (0.0-1.5); O2Hb 90.2 % (94.0-97.0); SITE, ABG Right Radial
--- NOTE | 2019-07-05 11:30 | NUR ---
COMMISSIONER PUBLIC WORKS NOTE PATIENT HAD EKG DONE AND RESULTS WERE SEEN AND EVALUATED BY MD. ORDERED FOR TRANSFER TO ICU FOR CONTINUITY OF CARE. PATIENT IS AWAKE AND RESPONSIVE. ALERT AND ORIENTED X3. ABLE TO ANSWER QUESTIONS. NO PAIN NOTED OR REPORTED. TOLERATING CONT. O2 AT 2LPM VIA NC WELL. NO SOB NOTED. REPORT GIVEN TO VIKA LORENZANA FOR JACKIE.
--- NOTE | 2019-07-05 12:10 | NUR ---
pt is on high flow O2 at 90% fi02 and 50L 02 flow, sat well.
--- NOTE | 2019-07-05 12:38 | NUR ---
received pt from Tele, s/p AMS, low Sat, alert, follows commands, fatigued, V pacing, on non rebreather at 15L, lungs congested, BLE non pitting edema, cardiac diet, diaper, v/s stable, no pain, pt turned and repositioned.
[2019-07-05] MEDS: INSULIN REGULAR, HUMAN 100 UNIT/ML 3 ML VIAL SQ PRN (12:48)
--- NOTE | 2019-07-05 13:11 | NUR ---
PO meds not given pt is very lethargic.
[2019-07-05 14:24] LABS: APPEARANCE,URINE CLOUDY (CLEAR); BILIRUBIN,URINE NEGATIVE (NEGATIVE); BLOOD, URINE TRACE-INTA Ery/uL (NEGATIVE); COLOR,URINE YELLOW (YELLOW); KETONES,URINE NEGATIVE (NEGATIVE); LEUKOCYTE ESTERASE ,URINE LARGE (NEGATIVE); NITRITE, URINE POSITIVE (NEGATIVE); PROTEIN,URINE TRACE mg/dl (NEGATIVE); UGLUCOSE NEGATIVE (NEGATIVE); UROBILINOGEN,URINE 0.2 EU/dL (0.2)
[2019-07-05 14:37] LABS: CREATININE, URINE 22.6 MG/DL (30.0-125.0)
[2019-07-05 14:46] LABS: BACTERIA,URINE 4+ /HPF (None Seen); SQUAMOUS EPITHELIAL CELL,UR Moderate /HPF (None Seen); URINE AMORPHOUS URATE Moderate /HPF (None Seen); WBC,URINE TOO NUMEROUS TO COUN /HPF (0-3)
--- NOTE | 2019-07-05 15:07 | NUR ---
- PRELIMINARY ECHOCARDIOGRAM SHOWED EF 25-30%~. 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 - INITIAL FINDINGS ADVISED TO ATTENDING RN.
[2019-07-05 15:24] LABS: EOSINOPHIL,URINE None Seen
--- NOTE | 2019-07-05 16:12 | NUR ---
pt is resting in the bed, fatigued, follows commands, V pacing, on high flow at 90% fi02 with 50L 02 flow, sat well, f/c good urine output, v/s stable, no pain, pt cleaned, changed and repositioned q2hrs.
--- NOTE | 2019-07-05 19:05 | NUR ---
ICU/RN notes Patient received in bed, Awake, open eyes, A/O x1, Denies any pain at this time. Breathing even and unlabored. On high flow O2 @ 50LPM. In no acute distress. V pacing on the monitor. IV sites with no S/S of infection/ Infiltration. Safety maintained, bed at the lowest locked position. Call light within reach. Will continue to monitor as per plan of care.
[2019-07-05] MEDS: ATORVASTATIN 10 MG TABLET PO SCH (21:50)
[2019-07-05] MEDS: TAMSULOSIN 0.4 MG CAP.SR.24H PO SCH (21:50)
[2019-07-05] MEDS: DIVALPROEX SODIUM 250 MG TABLET.DR PO SCH (21:50)
[2019-07-06] VITALS (10 sets, daily range): BP systolic 94–119; BP diastolic 54–64
[2019-07-06 05:08] LABS: BASOPHILS % (AUTO) 0.3 % (0.0-2.0); EOSINOPHILS % (AUTO) 0.2 % (0.0-6.0); HEMATOCRIT 36 % (39-51); HEMOGLOBIN 11.8 g/dL (13.5-17.5); LYMPHOCYTES # (AUTO) 0.8 /CMM (0.8-4.8); MEAN CORPUSCULAR HGB CONC 33 g/dl (31.0-36.0); MEAN CORPUSCULAR VOLUME 87 fL (80-96); MONOCYTES # (AUTO) 1.5 /CMM (0.1-1.30); MONOCYTES % (AUTO) 12.5 % (2.0-12.0); NEUTROPHILS # (AUTO) 9.6 /CMM (1.8-8.9); PLATELET COUNT (AUTO) 131 /CMM (150-450); RED BLOOD CELL COUNT(AUTO) 4.11 MIL/uL (4.5-6.0)
[2019-07-06 05:23] LABS: CALCIUM, SERUM 8.4 mg/dL (8.5-10.1); CARBON DIOXIDE 31 mmol/L (21-32); CHLORIDE 97 mmol/L (98-107); GLUCOSE 177 mg/dL (74-106); MAGNESIUM 2.1 mg/dL (1.8-2.4); SODIUM SERUM 139 mmol/L (136-145); UREA NITROGEN, BLOOD 50 mg/dL (7-18)
[2019-07-06 05:25] LABS: POTASSIUM 2.8 mmol/L (3.5-5.1)
[2019-07-06 05:29] LABS: CHOLESTEROL 197 mg/dL (<200); HDL CHOLESTEROL 32 mg/dL (40-60); LDL 126 mg/dL (0-99); THYROID STIMULATING HORMONE 0.376 uIU/mL (0.358-3.74); TRIGLYCERIDES 167 mg/dL (30-150)
--- NOTE | 2019-07-06 05:30 | NUR ---
Lab called for Critical, potassium 2.8. Called Dr. Juno Lin waiting for call back
[2019-07-06 05:37] LABS: IRON, SERUM 23 ug/dl (50-175); TOTAL IRON BINDING CAPACITY 132 ug/dl (250-450)
--- NOTE | 2019-07-06 05:38 | NUR ---
Dr. Juno ramos called back, relayed patient critical lab result with new order. Noted and carried out
[2019-07-06] MEDS ORDERED: POTASSIUM CHLORIDE 20 MEQ POWDER PACKET PO ONE (06:00)
--- NOTE | 2019-07-06 06:00 | NUR ---
ICU/RN notes Patient remained in bed, resting comfortably, easily arousable, open eyes, A/O x1, Denies any pain at this time. Breathing even and unlabored. Remained on High flow O2 @ 50LPM. In no acute distress. V pacing on the monitor. IV sites with no S/S of infection/ Infiltration. Due meds given as ordered, tolerated well. Safety maintained, bed at the lowest locked position. Call light within reach. Kept clean and dry. Needs attendant.
--- NOTE | 2019-07-06 06:05 | NUR ---
Patient transferred to AC unit, Report given to Yamilex SANDY
--- NOTE | 2019-07-06 06:15 | NUR ---
AC RN RECEIVED PTS AND REPORT FROM BANNER SALES FINANCIAL ANALYST , PT IN BED IN STABLE CONDITION ON 50 LITERS/MIN HI FLOW TOLERATING WELL . NO SOB NO DISTRESS NOTED , WILL ENDORSE TO RN DAY SHIFT FOR CONTINUITY OF CARE.
[2019-07-06] MEDS: POTASSIUM CHLORIDE 20 MEQ POWDER PACKET GT SCH ×4 (07:00→13:01)
--- NOTE | 2019-07-06 07:15 | NUR ---
TD/RN OPENING NOTES: RECEIVED PT IN BED ASLEEP, EASILY AROUSED, PT A/O X 1-2, NO ACUTE RESPIRATORY DISTRESS NOTED, ON HIGH FLOW WITH 86% FIO2 , 50LPM OF OXYGEN, SATURATING AT 94%. RESPIRATIONS EVEN & UNLABORED, LUNG SOUNDS RHONCHI. PT IS ON TELE MONITOR W/ SINUS RHYTHM, V-PACING, HR 82. IV SITE INTACT, FLUSHED, PATENT ALEXANDRA NO S/S OF INFECTION, SL. NOTED WITH PITTING EDEMA (+1) ON LOWER EXTREMITIES. PT IS COMFORTABLE, SCHEDULED AM MEDS TO BE GIVEN. CL WITHIN REACHED AND SAFETY MAINTAINED. ON GOING MONITORING.
[2019-07-06] MEDS: BLOOD SUGAR DIAGNOSTIC 1 EACH STRIP IN SCH ×4 (08:03→21:47)
[2019-07-06] MEDS: POTASSIUM CHLORIDE 20 MEQ TAB.PRT.SR PO SCH ×2 (09:00→16:27)
[2019-07-06] MEDS: DULOXETINE HCL 20 MG CAPSULE.DR PO SCH (09:08)
[2019-07-06] MEDS: DUTASTERIDE (0.5 MG) 0.5 MG CAPSULE PO SCH (09:08)
[2019-07-06] MEDS: DIVALPROEX SODIUM 125 MG CAP.SPRINK PO SCH ×2 (09:08→16:23)
[2019-07-06] MEDS: ISOSORBIDE MONONITRATE (30MG) 30 MG TAB.SR.24H PO SCH (09:09)
[2019-07-06] MEDS: CARVEDILOL 3.125 MG TABLET PO SCH ×2 (09:09→16:24)
[2019-07-06] MEDS: FOLIC ACID 1 MG TABLET PO SCH (09:09)
[2019-07-06] MEDS: RIVAROXABAN 15 MG TABLET PO SCH ×2 (09:10→16:27)
[2019-07-06] MEDS: PRIMIDONE 250 MG TABLET PO SCH ×3 (09:10→16:23)
[2019-07-06] MEDS: FAMOTIDINE (20 MG) 20 MG TABLET PO SCH (09:10)
[2019-07-06] MEDS: ASPIRIN EC 81 MG TABLET.DR PO SCH (09:10)
--- NOTE | 2019-07-06 09:10 | NUR ---
RN NOTE: K DUR HELD BECAUSE PT WILL BE RECEIVING POTASSIUM CHLORIDE TOTAL OF 120MEQ PER MANUEL PHAM NP.
[2019-07-06] MEDS: INSULIN REGULAR, HUMAN 100 UNIT/ML 3 ML VIAL SQ PRN (09:14)
[2019-07-06] MEDS: glipiZIDE 5 MG TABLET PO SCH (09:16)
[2019-07-06] MEDS: METOLAZONE 2.5 MG TABLET PO SCH (11:05)
--- NOTE | 2019-07-06 11:11 | NUR ---
rn notes Received patient on 50L flow per minute, saturating in the high 90's with stable vital signs. Patient a/o x1-2, able to drink and eat pureed diet without choking at this time. Potassium to be replenished. Bed at the lowest setting, call light within reach, side rails up x2.
--- NOTE | 2019-07-06 11:19 | NUR ---
TELE1/DIGITAL AD TRAFFICKER OF CARE PT ENDORSED TO NURSE RIZWAN IN STABLE CONDITION TO CONTINUE CARE.
--- NOTE | 2019-07-06 18:18 | NUR ---
RN CLOSING NOTES Patient remains on high flow ocygen with 50L of flow, vital signs stable, no sob noted and patient denies pain at this time. Blood sugar stable all shift. RFA 18 gauge remains present. Potassium replaced and held K DUR per MD's order. Bed at the lowest setting, call light within reach, side rails up x2. Will give report to NOC RN for JACKIE bedside.
[2019-07-06] MEDS: TAMSULOSIN 0.4 MG CAP.SR.24H PO SCH (21:47)
[2019-07-06] MEDS: DIVALPROEX SODIUM 250 MG TABLET.DR PO SCH (21:47)
[2019-07-06] MEDS: ATORVASTATIN 10 MG TABLET PO SCH (21:47)
--- NOTE | 2019-07-06 22:00 | NUR ---
SURGERY CONSULTANT NOTES BS CHECKED 161. PT NOT EATING MUCH. INSULIN NOT GIVEN AT THIS TIME. WILL CONTINUE TO MONITOR.
[2019-07-07] VITALS: BP 113/53
[2019-07-07 04:00] VITALS: BP 141/76
[2019-07-07] MEDS: BLOOD SUGAR DIAGNOSTIC 1 EACH STRIP IN SCH ×4 (06:06→23:07)
--- NOTE | 2019-07-07 06:26 | NUR ---
FISCAL MANAGER NOTES PT SLEEPING. AROUSABLE TO TACTILE STIMULI. NOT IN ANY DISTRESS. NO SOB NOTED. NO S/SX OF ANY PAIN OR DISCOMFORT AT THIS TIME. ON TELE V-PACING @ 80 WITH IV-HL PATENT & INTACT. AM CARE DONE. MONITORED ACCORDINGLY. CALL LIGHT WITHIN REACH. BED IN LOWEST POSITION. SR UP X 3 WITH BED ALARM ON FOR SAFETY. WILL ENDORSE TO NEXT SHIFT.
[2019-07-07 06:30] LABS: BASOPHILS % (AUTO) 0.4 % (0.0-2.0); EOSINOPHILS % (AUTO) 0.9 % (0.0-6.0); HEMATOCRIT 37 % (39-51); HEMOGLOBIN 12.3 g/dL (13.5-17.5); LYMPHOCYTES # (AUTO) 1.1 /CMM (0.8-4.8); LYMPHOCYTES % (AUTO) 11.2 % (20.0-44.0); MEAN CORPUSCULAR HGB CONC 33 g/dl (31.0-36.0); MEAN CORPUSCULAR VOLUME 88 fL (80-96); MONOCYTES # (AUTO) 1.7 /CMM (0.1-1.30); NEUTROPHILS # (AUTO) 6.6 /CMM (1.8-8.9); NEUTROPHILS % (AUTO) 69.5 % (43.0-81.0); PLATELET COUNT (AUTO) 159 /CMM (150-450); RED BLOOD CELL COUNT(AUTO) 4.23 MIL/uL (4.5-6.0); WHITE BLOOD COUNT (AUTO) 9.5 K/uL (4.3-11.0)
[2019-07-07 06:40] LABS: ALANINE AMINOTRANSFERASE 20 U/L (12-78); ALBUMIN 2.6 g/dL (3.4-5.0); ALKALINE PHOSPHATASE 109 U/L (46-116); ASPARTATE AMINOTRANSFERASE 16 U/L (15-37); BILIRUBIN,TOTAL 0.7 mg/dL (0.2-1.0); CALCIUM, SERUM 8.8 mg/dL (8.5-10.1); CARBON DIOXIDE 33 mmol/L (21-32); CHLORIDE 99 mmol/L (98-107); GLUCOSE 151 mg/dL (74-106); MAGNESIUM 2.5 mg/dL (1.8-2.4); PHOSPHORUS 3.5 mg/dL (2.5-4.9); POTASSIUM 3.3 mmol/L (3.5-5.1); SODIUM SERUM 139 mmol/L (136-145); TOTAL PROTEIN, SERUM 8.1 g/dL (6.4-8.2); UREA NITROGEN, BLOOD 51 mg/dL (7-18)
--- NOTE | 2019-07-07 06:51 | NUR ---
POLISH MAKER NOTES BS CHECKED 143. PT NOT EATING MUCH. INSULIN NOT GIVEN AT THIS TIME. WILL CONTINUE TO MONITOR.
--- NOTE | 2019-07-07 07:10 | NUR ---
RN OPENING NOTE: RECEIVED PATIENT IN BED AND ASLEEP. EASILY AROUSABLE. ON CONT. O2 VIA HIGH FLOW CANNULA AT 50%. PATIENT TOLERATING WELL, NO SOB AND NOT IN RESPIRATORY DISTRESS. ON CARDIAC MONITORING WITH V. PACING NOTED. IV SITE CLEAN, DRY AND SECURE. NO PAIN NOTED. CALL LIGHT IN REACH. BED LOCKED, LOW AND AT SEMI-RENDON'S POSITION. NEEDS ANTICIPATED. SIDE RAILS UP X3. WILL CONTINUE TO MONITOR. Addendum: 07/07/19 at 1735 by MARU DESIR RN PATIENT WITH MOFFETT CATHETER DRAINING CLEAR YELLOW URINE.
[2019-07-07 08:00] VITALS: BP 118/69
[2019-07-07] MEDS: glipiZIDE 5 MG TABLET PO SCH (08:40)
[2019-07-07] MEDS: POTASSIUM CHLORIDE 20 MEQ TAB.PRT.SR PO SCH ×2 (08:54→17:09)
[2019-07-07] MEDS: ISOSORBIDE MONONITRATE (30MG) 30 MG TAB.SR.24H PO SCH (08:54)
[2019-07-07] MEDS: PRIMIDONE 250 MG TABLET PO SCH ×3 (08:54→17:09)
[2019-07-07] MEDS: CARVEDILOL 3.125 MG TABLET PO SCH ×2 (08:54→17:09)
[2019-07-07] MEDS: METOLAZONE 2.5 MG TABLET PO SCH (08:54)
[2019-07-07] MEDS: DUTASTERIDE (0.5 MG) 0.5 MG CAPSULE PO SCH (08:55)
[2019-07-07] MEDS: ASPIRIN EC 81 MG TABLET.DR PO SCH (08:55)
[2019-07-07] MEDS: FOLIC ACID 1 MG TABLET PO SCH (08:55)
[2019-07-07] MEDS: FAMOTIDINE (20 MG) 20 MG TABLET PO SCH (08:55)
[2019-07-07] MEDS: DIVALPROEX SODIUM 125 MG CAP.SPRINK PO SCH ×2 (08:55→17:09)
[2019-07-07] MEDS: DULOXETINE HCL 20 MG CAPSULE.DR PO SCH (08:55)
[2019-07-07] MEDS: RIVAROXABAN 15 MG TABLET PO SCH ×2 (08:56→17:10)
[2019-07-07 11:05] LABS: ABG BASE EXCESS 6.3 mmol/L; ABG OXYGEN SATURATION 95.3 % (92.0-98.5); ABG PCO2 55.1 mmHg (35.0-45.0); ABG PH 7.391 (7.350-7.450); ABG PO2 79.7 mmHg (75.0-100.0); AaDO2 214.8 mmHg; MetHb 0.1 % (0.0-1.5); O2Hb 94.3 % (94.0-97.0); SITE, ABG Right Radial; VENT MODE, BG HIGH FLOW 50%
[2019-07-07 12:00] VITALS: BP 112/64
[2019-07-07] MEDS: INSULIN REGULAR, HUMAN 100 UNIT/ML 3 ML VIAL SQ PRN ×2 (12:36→23:13)
[2019-07-07] MEDS ORDERED: MEROPENEM 500 MG in IV NS 0.9% 50 ML IV SCH (14:00)
[2019-07-07] MEDS ORDERED: CEFEPIME 1 GM in IV D5W 50 ML IV SCH (14:00)
[2019-07-07] MEDS: MEROPENEM 1 G in IV NS 0.9% 100 ML IV SCH (15:36)
[2019-07-07 16:00] VITALS: BP 115/67
--- NOTE | 2019-07-07 18:49 | NUR ---
RN CLOSING NOTE: PATIENT STILL IN BED. AWAKE, ALERT AND ORIENTED X2-3. ON CONT. O2 VIA HIGH FLOW CANNULA AT 50%. PATIENT TOLERATING WELL, NO SOB AND NOT IN RESPIRATORY DISTRESS. SATURATION >90%. ON CARDIAC MONITORING WITH V. PACING NOTED. IV SITE CLEAN, DRY AND SECURE. NO PAIN NOTED. MOFFETT CATHETER DRAINING CLEAR YELLOW URINE.CALL LIGHT IN REACH. BED LOCKED, LOW AND AT SEMI-RENDON'S POSITION. NEEDS ANTICIPATED. SIDE RAILS UP X3. WILL CONTINUE TO MONITOR. NO CHANGES NOTED IN SHIFT. WILL ENDORSE TO ONCOMING SHIFT.
[2019-07-07 20:00] VITALS: BP 111/63
[2019-07-07] MEDS: ATORVASTATIN 10 MG TABLET PO SCH (23:06)
[2019-07-07] MEDS: TAMSULOSIN 0.4 MG CAP.SR.24H PO SCH (23:06)
[2019-07-07] MEDS: DIVALPROEX SODIUM 250 MG TABLET.DR PO SCH (23:06)
[2019-07-08] VITALS: BP_SYST 117; BP_SYST 128; BP_DIAS 63; BP_DIAS 65
[2019-07-08] MEDS: MEROPENEM 1 G in IV NS 0.9% 100 ML IV SCH ×2 (03:41→15:43)
[2019-07-08 04:00] VITALS: BP 116/61
--- NOTE | 2019-07-08 07:30 | NUR ---
RN OPENING NOTE: RECEIVED PATIENT IN BED AND ASLEEP. EASILY AROUSABLE. ON BIPAP VIA HIGH FLOW CANNULA AT 50%. PATIENT TOLERATING WELL, NO SOB AND NOT IN RESPIRATORY DISTRESS. ON CARDIAC MONITORING WITH V. PACING NOTED. IV SITE CLEAN, DRY AND SECURE. NO PAIN NOTED. CALL LIGHT IN REACH. BED LOCKED, LOW AND AT SEMI-RENDON'S POSITION. NEEDS ANTICIPATED. SIDE RAILS UP X3. WILL CONTINUE TO MONITOR.
--- NOTE | 2019-07-08 07:48 | NUR ---
RN NOTES ACCUCHECK DONE. BS 157 MG/DL. 2 UNITS HUM R GIVEN SUBCUTANEOUS PER SS.
[2019-07-08] MEDS: BLOOD SUGAR DIAGNOSTIC 1 EACH STRIP IN SCH ×4 (07:58→22:34)
[2019-07-08] MEDS: glipiZIDE 5 MG TABLET PO SCH (07:58)
[2019-07-08 08:00] VITALS: BP_SYST 98; BP_DIAS 46; BP_DIAS 56
[2019-07-08] MEDS: CARVEDILOL 3.125 MG TABLET PO SCH ×2 (09:00→17:00)
[2019-07-08] MEDS: ISOSORBIDE MONONITRATE (30MG) 30 MG TAB.SR.24H PO SCH (09:00)
--- NOTE | 2019-07-08 09:24 | NUR ---
WOUND CARE CONSULT: PT FOLLOWED BY PLASTIC SURGERY TEAM FOR WOUND CARE. DEFER TO SURGICAL TEAM FOR WOUND TREATMENT PLAN. FIRST STEP LOW AIRLOSS MATTRESS ON ORDER. DISCUSSED SKIN PROTECTION WITH NURSING STAFF. WILL SEE PRN.
[2019-07-08] MEDS: METOLAZONE 2.5 MG TABLET PO SCH (09:49)
[2019-07-08] MEDS: FAMOTIDINE (20 MG) 20 MG TABLET PO SCH (09:49)
[2019-07-08] MEDS: POTASSIUM CHLORIDE 20 MEQ TAB.PRT.SR PO SCH ×2 (09:50→17:28)
[2019-07-08] MEDS: FOLIC ACID 1 MG TABLET PO SCH (09:50)
[2019-07-08] MEDS: DUTASTERIDE (0.5 MG) 0.5 MG CAPSULE PO SCH (09:50)
[2019-07-08] MEDS: PRIMIDONE 250 MG TABLET PO SCH ×3 (09:50→17:28)
[2019-07-08] MEDS: DIVALPROEX SODIUM 125 MG CAP.SPRINK PO SCH ×2 (09:51→17:28)
[2019-07-08] MEDS: ASPIRIN EC 81 MG TABLET.DR PO SCH (09:52)
[2019-07-08] MEDS: DULOXETINE HCL 20 MG CAPSULE.DR PO SCH (09:52)
[2019-07-08] MEDS: RIVAROXABAN 15 MG TABLET PO SCH ×2 (09:53→17:28)
[2019-07-08] MEDS: INSULIN REGULAR, HUMAN 100 UNIT/ML 3 ML VIAL SQ PRN ×4 (10:13→22:37)
[2019-07-08 12:00] VITALS: BP_SYST 86; BP_DIAS 45; BP_DIAS 56
--- NOTE | 2019-07-08 12:35 | NUR ---
RN NOTES ACCUCHECK DONE. BS 140 MG/DL. 2 UNITS HUM R GIVEN SUBCUTANEOUS PER SS.
[2019-07-08 16:00] VITALS: BP_SYST 96; BP_DIAS 46; BP_DIAS 50
--- NOTE | 2019-07-08 17:30 | NUR ---
RN NOTES ACCUCHECK DONE. BS 152 MG/DL. 2 UNITS HUM R GIVEN SUBCUTANEOUS PER SS.
--- NOTE | 2019-07-08 18:37 | NUR ---
RN CLOSING NOTE: PATIENT IN BED. ASLEEP . REMAIN AT HIGH FLOW AT 55%FIAO2 40L/ MIN. PATIENT TOLERATING WELL, NO SOB AND NOT IN RESPIRATORY DISTRESS. SATURATION >90%. ON CARDIAC MONITORING WITH V. PACING NOTED. IV SITE CLEAN, DRY AND SECURE. NO PAIN NOTED. MOFFETT CATHETER DRAINING CLEAR YELLOW URINE OUTPUT OF 800/12H.CALL LIGHT IN REACH. BED LOCKED, LOW AND AT SEMI-RENDON'S POSITION AND ON LOWEST POSSIBLE POSITION ALL NEEDS MET THIS TIME REPOSITION AND TURN Q2H,CALL LIGHT WITHIN REACH. SIDE RAILS UP X3. WILL CONTINUE TO MONITOR. NO CHANGES NOTED IN SHIFT. WILL ENDORSE TO ONCOMING SHIFT.
--- NOTE | 2019-07-08 19:00 | NUR ---
RN OPENING NOTES: PATIENT IN BED, ASLEEP, BUT AROUSALE TO TOUCH AND TACTILE STIMULI WITH EYES OPENING. ON HIGH FLOW O2, TOLERATING WELL, O2 SAT 98%. NO RESPIRATORY DISTRESS. NO S/S OF PAIN OR FACIAL GRIMACING. (R) FA #[id number] INTACT, PATENT, AND FLUSHING WELL. SAFETY PRECAUTIONS IMPLEMENTED. BED LOCKED, ALARM ON, AND IN LOWEST POSITION. HOB ELEVATED. MOFFETT INTACT AND PATENT, DRAINING CLEAR SHAHRZAD URINE. CALL LIGHT PLACED WITHIN REACH. WILL CONT. TO MONITOR.
[2019-07-08 20:00] VITALS: BP 130/68
[2019-07-08] MEDS: TAMSULOSIN 0.4 MG CAP.SR.24H PO SCH (22:00)
[2019-07-08] MEDS: DIVALPROEX SODIUM 250 MG TABLET.DR PO SCH (22:00)
[2019-07-08] MEDS: ATORVASTATIN 10 MG TABLET PO SCH (22:00)
[2019-07-09] VITALS: BP 128/65
--- NOTE | 2019-07-09 00:31 | NUR ---
RN NOTE: DR. MCDOWELL MADE AWARE THAT PATIENT HAS BEEN LETHARGIC AND ONLY RESPONDS TO VERBAL AND TACTILE STIMULI WITH EYES OPENING. PATIENT UNABLE TO TAKE PO MEDS AT THIS TIME. RECOMMENDED TO CHANGE DIET TO NPO STATUS TO MD. PER MD, JUST HOLD ATORVASTATIN, DIVALPROEX, AND TAMSULOSIN AT THIS TIME. WILL CONT. TO MONITOR.
[2019-07-09] MEDS: MEROPENEM 1 G in IV NS 0.9% 100 ML IV SCH ×2 (02:37→14:04)
[2019-07-09 04:00] VITALS: BP 117/69
--- NOTE | 2019-07-09 06:57 | NUR ---
RT DEPT, DID NOT HAVE ADEQUATE RESOURCES TO PLACE PATIENT ON BIPAP. HOWEVER PT REMAINED STABLE ON HIGH FLOW, RESPIRATORY RATE WITHIN NORMAL LIMITS AND SPO2 REMAINED ABOVE >92%, PT CONDITIONED REMAINED STABEL THROUGHOUT THE NIGHT VIKA MCCLURE
--- NOTE | 2019-07-09 07:00 | NUR ---
RN OPENING NOTES: BEDSIDE REPORT GIVEN TO AM SHIFT NURSE. PATIENT IN STABLE CONDITION. ENDORSED TO AM SHIFT NURSE FOR CONTINUITY OF CARE, NIGHT MEDS WERE NOT GIVEN ORDERED BY DR. MCDOWELL, AND TO F/U WITH AM REGARDING DIET. Addendum: 07/09/19 at 0738 by REN KU RN CORRECTION: RN CLOSING NOTES Addendum: 07/09/19 at 0808 by REN KU RN PATIENT TURNED AND REPOSITIONED Q2H DURING SHIFT.
--- NOTE | 2019-07-09 07:15 | NUR ---
RN OPENING NOTES RECEIVED PATIENT IN BED RESTING COMFORTABLY. HE IS ON HIGH FLOW OXYGEN AT 70% AND IS SATING AROUND 91-92%, USING ABDOMINAL MUSCLES TO BREATH. HE IS DIFFICULT TO AROUSE, NON-ALERT, AND ON BEDREST. TELE MONITOR SHOWING V[ACING WITH PVC. MULTIPLE WOUNDS THROUGHOUT, WILL ADDRESS PER WOUND CARE PLAN. RFA 18 G IS PATENT AND INTACT. MOFFETT CATH IS PATENT AND INTACT. SAFETY MEASURES HAVE BEEN IMPLEMENTED, CALL LIGHT IS WITHIN REACH, BED IS IN LOWEST AND LOCKED POSITION, SIDE RAILS UP X2, WILL CONTINUE TO MONITOR FOR ANY CHANGES.
[2019-07-09] MEDS: glipiZIDE 5 MG TABLET PO SCH (07:30)
[2019-07-09 08:00] VITALS: BP 112/70
[2019-07-09] MEDS: BLOOD SUGAR DIAGNOSTIC 1 EACH STRIP IN SCH ×4 (08:04→22:37)
--- NOTE | 2019-07-09 08:40 | NUR ---
RN NOTES NOTIFIED DR. POTTS REGARDING RESP CONDITION. RECEIVED ORDERS FOR STAT ABG, NPO, AND BIPAP IF NECESSARY
[2019-07-09] MEDS: METOLAZONE 2.5 MG TABLET PO SCH (09:00)
[2019-07-09] MEDS: DUTASTERIDE (0.5 MG) 0.5 MG CAPSULE PO SCH (09:00)
[2019-07-09] MEDS: PRIMIDONE 250 MG TABLET PO SCH ×3 (09:00→17:00)
[2019-07-09] MEDS: FAMOTIDINE (20 MG) 20 MG TABLET PO SCH (09:00)
[2019-07-09] MEDS: DULOXETINE HCL 20 MG CAPSULE.DR PO SCH (09:00)
[2019-07-09] MEDS: ISOSORBIDE MONONITRATE (30MG) 30 MG TAB.SR.24H PO SCH (09:00)
[2019-07-09] MEDS: RIVAROXABAN 15 MG TABLET PO SCH ×2 (09:00→17:00)
[2019-07-09] MEDS: POTASSIUM CHLORIDE 20 MEQ TAB.PRT.SR PO SCH ×2 (09:00→17:00)
[2019-07-09] MEDS: DIVALPROEX SODIUM 125 MG CAP.SPRINK PO SCH ×2 (09:00→17:00)
[2019-07-09] MEDS: FOLIC ACID 1 MG TABLET PO SCH (09:00)
[2019-07-09] MEDS: CARVEDILOL 3.125 MG TABLET PO SCH ×2 (09:00→17:00)
[2019-07-09] MEDS: ASPIRIN EC 81 MG TABLET.DR PO SCH (09:00)
[2019-07-09 09:02] LABS: ABG BASE EXCESS 4.2 mmol/L; ABG OXYGEN SATURATION 92.4 % (92.0-98.5); ABG PCO2 51.2 mmHg (35.0-45.0); ABG PH 7.389 (7.350-7.450); ABG PO2 66.3 mmHg (75.0-100.0); AaDO2 377.8 mmHg; COHb 1.3 % (0.5-1.5); MetHb 0.5 % (0.0-1.5); O2Hb 90.7 % (94.0-97.0); SITE, ABG Right Radial; VENT MODE, BG HFNC
--- NOTE | 2019-07-09 09:30 | NUR ---
RN NOTES UNABLE TO GIVE AM MEDS. PT IS ALTERED AND IS NOT ALERT, MD AWARE. WILL CONTINUE TO MONITOR FOR ANY CHANGES.
[2019-07-09 12:00] VITALS: BP 118/66
[2019-07-09] MEDS: FUROSEMIDE 40 MG/4 ML VIAL IV SCH (12:18)
[2019-07-09 13:40] LABS: BASOPHILS % (AUTO) 0.1 % (0.0-2.0); HEMATOCRIT 40 % (39-51); LYMPHOCYTES # (AUTO) 0.5 /CMM (0.8-4.8); LYMPHOCYTES % (AUTO) 4.7 % (20.0-44.0); MEAN CORPUSCULAR HGB CONC 32 g/dl (31.0-36.0); MEAN CORPUSCULAR VOLUME 89 fL (80-96); MONOCYTES # (AUTO) 1.4 /CMM (0.1-1.30); MONOCYTES % (AUTO) 13.3 % (2.0-12.0); NEUTROPHILS # (AUTO) 8.9 /CMM (1.8-8.9); NEUTROPHILS % (AUTO) 81.9 % (43.0-81.0); PLATELET COUNT (AUTO) 206 /CMM (150-450); RED BLOOD CELL COUNT(AUTO) 4.54 MIL/uL (4.5-6.0); WHITE BLOOD COUNT (AUTO) 10.8 K/uL (4.3-11.0)
[2019-07-09 13:49] LABS: CALCIUM, SERUM 9.3 mg/dL (8.5-10.1); CARBON DIOXIDE 32 mmol/L (21-32); CHLORIDE 104 mmol/L (98-107); CREATININE 2.2 mg/dL (0.6-1.3); GLUCOSE 270 mg/dL (74-106); POTASSIUM 3.2 mmol/L (3.5-5.1); SODIUM SERUM 145 mmol/L (136-145); UREA NITROGEN, BLOOD 69 mg/dL (7-18)
[2019-07-09 16:00] VITALS: BP 117/61
--- NOTE | 2019-07-09 19:12 | NUR ---
RN OPENING NOTES RECEIVED PATIENT IN BED, OBTUNDED/VERY LETHARGIC, OPENS EYES TO DEEP PAIN. ON BIPAP (FIO2 50%), NO SOB OR RESPIRATORY DISTRESS NOTED. SATURATING 96% AT THE MOMENT. ON TELE MONITOR V PACING WITH HR 80'S. IV SITE RFA 18G, FLUSHING AND PATENT, SITE C/D/I, SALINE LOCKED. MOFFETT CATH IN PLACE AND DRAINING WELL. SAFETY MEASURES IN PLACE; CALL LIGHT WITHIN REACH, SIDE RAILS UP X2, BED IS IN LOWEST AND LOCKED POSITION, HOB ELEVATED. WILL CONTINUE TO MONITOR CLOSELY.
--- NOTE | 2019-07-09 19:49 | NUR ---
RN CLOSING NOTES PATIENT IS RESTING COMFORTABLY IN BED, DOES NOT SHOW ANY S/SX OF RESP DISTRESS OR SOB, PT IS ON BIPAP, STILL NOT ALERT. UNRESPONSIVE TO PAIN, TOUCH, AND NAME. PT NEEDS HAVE BEEN MET, VITAL SIGNS ARE STABLE, NO ACUTE CHANGES OCCURRED THROUGHOUT THE SHIFT. SAFETY MEASURES HAVE BEEN IMPLEMENTED, CALL LIGHT IS WITHIN REACH, BED IS IN LOWEST AND LOCKED POSITION, SIDE RAILS UP X2, PT HAS BEEN ENDORSED TO NIGHTSHIFT RN FOR CONTINUITY OF CARE.
[2019-07-09 20:00] VITALS: BP 122/67
--- NOTE | 2019-07-09 20:10 | NUR ---
RN NOTES MD MADE AWARE REGARDING PATIENT UNREPLACED POTASSIUM 3.2 DURING AM SHIFT. ALSO MADE AWARE REGARDING PATIENT PO MEDS HAS NOT BEEN GIVEN SINCE PATIENT NPO DIAGNOSIS. ORDERED TO REPLACE KCL 20MEQ IV. WILL ATTEND TO ORDERS.
[2019-07-09] MEDS ORDERED: POTASSIUM CHLORIDE 10 MEQ/50 ML PREMIXED IVPB FOR PERIPHERAL LINE IV ONE (20:30)
[2019-07-09] MEDS: POTASSIUM CL. PREMIX PERIPHER. 50 ML IV SCH ×2 (21:13→22:38)
[2019-07-09] MEDS: ATORVASTATIN 10 MG TABLET PO SCH (22:00)
[2019-07-09] MEDS: DIVALPROEX SODIUM 250 MG TABLET.DR PO SCH (22:00)
[2019-07-09] MEDS: TAMSULOSIN 0.4 MG CAP.SR.24H PO SCH (22:00)
[2019-07-09] MEDS: INSULIN REGULAR, HUMAN 100 UNIT/ML 3 ML VIAL SQ PRN (22:41)
--- NOTE | 2019-07-09 23:00 | NUR ---
GAVE REPORT TO VIKA LARA FOR JACKIE.
--- NOTE | 2019-07-09 23:31 | NUR ---
RT NOTE Pt rec'd on bipap per md orders. Pt shows no signs of resp distress or sob. Mepilex in place and no skin tear or redness noted. Bipap plugged into red outlet, Alarms are set and audible. Will continue to monitor. Addendum: 07/09/19 at 2332 by ANGELO BIRCH RT Amended: Links added.
[2019-07-10] VITALS (7 sets, daily range): BP systolic 87–130; BP diastolic 40–69
[2019-07-10] MEDS: MEROPENEM 1 G in IV NS 0.9% 100 ML IV SCH ×2 (02:59→14:03)
--- NOTE | 2019-07-10 03:58 | NUR ---
GAVE REPORT TO VIKA LARA FOR JACKIE. Addendum: 07/10/19 at 0425 by JÚNIOR FUENTES RN RESUMED CARE AGAIN FOR PATIENT.
[2019-07-10] MEDS ORDERED: VALPROATE 500 MG in IV NS 0.9% 100 ML IV STA (06:35)
--- NOTE | 2019-07-10 07:05 | NUR ---
RN NOTES UNABLE TO ADMINISTER VALPROATE IV DUE AT 0635 DUE TO MEDICATION NOT FOUND IN PYXIS AND NOT IN PATIENT'S MEDICATION DRAWER YET. WILL ENDORSED TO AM RN.
--- NOTE | 2019-07-10 07:06 | NUR ---
RN CLOSING NOTES GAVE BEDSIDE REPORT TO VIKA SCHULTZ FOR JACKIE. PATIENT IN BED, STILL OBTUNDED. NO ACUTE CHANGES THROUGHOUT SHIFT. ON BIPAP (FIO2 50%), NO SOB OR RESPIRATORY DISTRESS NOTED. SATURATING 96% AT THE MOMENT. ON TELE MONITOR V PACING WITH HR 70'S. IV SITE RFA 18G, FLUSHING AND PATENT, SITE C/D/I, SALINE LOCKED. MOFFETT CATH IN PLACE AND DRAINING WELL. SAFETY MEASURES IN PLACE; CALL LIGHT WITHIN REACH, SIDE RAILS UP X2, BED IS IN LOWEST AND LOCKED POSITION, HOB ELEVATED. WOUND TX DONE ORDERED. ALL MD ORDERS ATTENDED.
[2019-07-10] MEDS: glipiZIDE 5 MG TABLET PO SCH (07:30)
--- NOTE | 2019-07-10 08:04 | NUR ---
RT PATIENT DID NOT TOLERATE BEING OFF THE BIPAP. NOTED SOB AND DESATURATION. PATIENT WILL REMAIN ON BIPAP UNTIL FURTHER DECISIONS CAN BE MADE Addendum: 07/10/19 at 0938 by PATRICK SHAW RT Amended: Links added.
[2019-07-10] MEDS: BLOOD SUGAR DIAGNOSTIC 1 EACH STRIP IN SCH ×4 (08:33→22:38)
--- NOTE | 2019-07-10 08:33 | NUR ---
TELE/RN NOTES MEDICATION GLIPIZIDE AND INSULIN WAS NO GIVEN DUE TO BS OF 203 AND NPO STATUS. BS IS TRENDING DOWN WELL. WILL CONTINUE TO MONITOR CLOSELY.
[2019-07-10] MEDS: DIVALPROEX SODIUM 125 MG CAP.SPRINK PO SCH ×2 (08:39→17:00)
[2019-07-10] MEDS: ASPIRIN EC 81 MG TABLET.DR PO SCH (08:39)
[2019-07-10] MEDS: DUTASTERIDE (0.5 MG) 0.5 MG CAPSULE PO SCH (08:39)
[2019-07-10] MEDS: CARVEDILOL 3.125 MG TABLET PO SCH ×2 (08:39→17:00)
[2019-07-10] MEDS: DULOXETINE HCL 20 MG CAPSULE.DR PO SCH (08:39)
[2019-07-10] MEDS: FOLIC ACID 1 MG TABLET PO SCH (08:40)
[2019-07-10] MEDS: PRIMIDONE 250 MG TABLET PO SCH ×3 (08:40→17:00)
[2019-07-10] MEDS: RIVAROXABAN 15 MG TABLET PO SCH ×2 (08:40→17:00)
[2019-07-10] MEDS: POTASSIUM CHLORIDE 20 MEQ TAB.PRT.SR PO SCH ×2 (08:40→17:00)
[2019-07-10] MEDS: FAMOTIDINE (20 MG) 20 MG TABLET PO SCH (08:40)
[2019-07-10] MEDS: ISOSORBIDE MONONITRATE (30MG) 30 MG TAB.SR.24H PO SCH (08:40)
[2019-07-10] MEDS: METOLAZONE 2.5 MG TABLET PO SCH (08:41)
[2019-07-10] MEDS: FUROSEMIDE 40 MG/4 ML VIAL IV SCH (08:44)
[2019-07-10] MEDS: FUROSEMIDE 100 MG/10 ML VIAL IV SCH ×3 (11:28→20:51)
--- NOTE | 2019-07-10 11:29 | NUR ---
TELE/RN NOTES MEDICATION INSULIN WAS HELD DUE TO NPO STATUS. PATIENT CONTINUES TO REMAIN IN STABLE CONDITION. WILL CONTINUE TO MONITOR CLOSELY.
--- NOTE | 2019-07-10 14:00 | NUR ---
TELE/RN NOTES WHILE DOING ROUTINE SKIN CHECKS WITH TC PEREZ NOTICED A SKIN INJURY IN THE LEFT BUTTOCK AREA. CHARGE NURSE AND TREATMENT NURSE MADE AWARE WELL. WILL CONTINUE TO MONITOR CLOSELY. INCIDENT REPORT WAS DONE WELL. UNIQUE ID: [id number].
--- NOTE | 2019-07-10 17:01 | NUR ---
TELE/RN NOTES MEDICATION INSULIN WAS NOT GIVEN DUE TO PATIENT BEING NPO STATUS. PATIENT CONTINUES TO REMAIN IN STABLE CONDITION. WILL CONTINUE TO MONITOR CLOSELY.
--- NOTE | 2019-07-10 19:18 | NUR ---
TELE/RN CLOSING NOTES PATIENT CONTINUES TO REMAIN IN STABLE CONDITION THROUGHOUT THE SHIFT. PROVIDED COMFORT AND SAFETY. PATIENT ABLE TO TOLERATE HIGH FLOW OXYGEN. PATIENT CONTINUES ON NPO STATUS. PATIENT ABLE TO TOLERATE ATB MEDICATION VIA IV. NO ADVERSE REACTIONS AT THIS TIME. HOB ELEVATED AT ALL TIMES. ALL NEEDS ANTICIPATED. CALL LIGHT WITHIN REACHED. BED LOCKED AND IN LOWEST POSITION. SAFETY MAINTAINED. WILL CONTINUE TO MONITOR CLOSELY. ENDORSED TO PM NURSE FOR JACKIE.
--- NOTE | 2019-07-10 19:30 | NUR ---
RN OPENING NOTES RECEIVED PATIENT IN BED, OBTUNDED. ON HIGH FLOW 40LPM, SATURATING 95% AT THE MOMENT, TACHYPNEIC. ON TELE MONITOR V PACING WITH HR 70'S. IV SITE RFA 18G, FLUSHING AND PATENT, SITE C/D/I, SALINE LOCKED. MOFFETT CATH IN PLACE AND DRAINING WELL. SAFETY MEASURES IN PLACE; CALL LIGHT WITHIN REACH, SIDE RAILS UP X2, BED IS IN LOWEST AND LOCKED POSITION, HOB ELEVATED. WILL CONTINUE TO MONITOR PT CLOSELY.
--- NOTE | 2019-07-10 21:06 | NUR ---
RT NOTE PT RECEIVED ON HIGH FLOW NASAL CANNULA. PLACED PT ON BIPAP AT THIS TIME PER NOC ORDER. MASK SECURED WITH MEPILEX. AMBU BAG @ BEDSIDE. ALARMS ON AND AUDIBLE. BIPAP PLUGGED TO RED OUTLET. WILL CONTINUE TO MONITOR. Addendum: 07/10/19 at 2107 by WILLIAM HAMPTON RT Amended: Links added.
--- NOTE | 2019-07-10 21:30 | NUR ---
RN NOTES PATIENT REMAINS OBTUNDED ON BIPAP HOWEVER NOTED WITH LABORED BREATHING, RR 40'S, SATURATING 94-95%. PAGED LOSS PREVENTION DETECTIVE MD REGARDING CHANGE OF PATIENT STATUS. ORDERED STAT ABG. PAGED RT FOR STAT ABG. AWAITING FOR RESPONSE.
[2019-07-10 21:59] LABS: ABG BASE EXCESS 4.7 mmol/L; ABG OXYGEN SATURATION 96.3 % (92.0-98.5); ABG PCO2 56.3 mmHg (35.0-45.0); ABG PH 7.366 (7.350-7.450); ABG PO2 93.8 mmHg (75.0-100.0); AaDO2 199.4 mmHg; COHb 1.1 % (0.5-1.5); MetHb 0.3 % (0.0-1.5); SITE, ABG Right Radial
[2019-07-10] MEDS: TAMSULOSIN 0.4 MG CAP.SR.24H PO SCH (22:00)
[2019-07-10] MEDS: ATORVASTATIN 10 MG TABLET PO SCH (22:00)
[2019-07-10] MEDS: DIVALPROEX SODIUM 250 MG TABLET.DR PO SCH (22:00)
--- NOTE | 2019-07-10 22:02 | NUR ---
RN NOTES SENT STAT ABG RESULTS TO GAMING WORKER MD. ORDERED MORPHINE 1MG IV Q3H PRN. WILL ATTEND TO ORDERS. WILL CONT TO MONITOR PT CLOSELY.
[2019-07-10] MEDS: INSULIN REGULAR, HUMAN 100 UNIT/ML 3 ML VIAL SQ PRN (22:50)
--- NOTE | 2019-07-10 22:56 | NUR ---
RN NOTES PAGED AFTER HOUR PHARMACY ([facility]) TO VERIFY MD ORDER MORPHINE 1MG IV Q3H PRN. SPOKE WITH JOANN AND STATED THEY WILL VERIFY MEDICATION SOON POSSIBLE.
[2019-07-10] MEDS: MORPHINE SULFATE INJ 2 MG/ML DISP.SYRIN IV PRN (23:18)
[2019-07-11] VITALS: BP 111/56
--- NOTE | 2019-07-11 00:38 | NUR ---
RN NOTES PAGED REGARDING PATIENT INCREASED TEMP 101.8F VIA AXILLARY AND PT STILL TACHYPNEIC 1 HR AFTER 1MG MORPHINE SATURATING 97%. ORDERED TYLENOL SUPPOSITORY 650MG Q6H PRN. WILL ATTEND TO ORDERS. COOLING MEASURES IN PLACE. WILL CONT TO MONITOR PT.
[2019-07-11] MEDS: MEROPENEM 1 G in IV NS 0.9% 100 ML IV SCH ×2 (02:46→14:54)
[2019-07-11] MEDS: ACETAMINOPHEN 650 MG/SUPP.RECT RC PRN ×2 (02:46→15:01)
[2019-07-11 04:00] VITALS: BP 102/60
[2019-07-11 06:55] LABS: BASOPHILS % (AUTO) 0.2 % (0.0-2.0); EOSINOPHILS % (AUTO) 0.6 % (0.0-6.0); HEMATOCRIT 42 % (39-51); HEMOGLOBIN 13.4 g/dL (13.5-17.5); LYMPHOCYTES # (AUTO) 0.8 /CMM (0.8-4.8); LYMPHOCYTES % (AUTO) 6.9 % (20.0-44.0); MEAN CORPUSCULAR HGB CONC 32 g/dl (31.0-36.0); MEAN CORPUSCULAR VOLUME 90 fL (80-96); MONOCYTES % (AUTO) 17.2 % (2.0-12.0); NEUTROPHILS # (AUTO) 8.6 /CMM (1.8-8.9); NEUTROPHILS % (AUTO) 75.1 % (43.0-81.0); PLATELET COUNT (AUTO) 176 /CMM (150-450); RED BLOOD CELL COUNT(AUTO) 4.65 MIL/uL (4.5-6.0); WHITE BLOOD COUNT (AUTO) 11.4 K/uL (4.3-11.0)
[2019-07-11 07:07] LABS: ALANINE AMINOTRANSFERASE 114 U/L (12-78); ALBUMIN 2.1 g/dL (3.4-5.0); ALKALINE PHOSPHATASE 120 U/L (46-116); ASPARTATE AMINOTRANSFERASE 189 U/L (15-37); BILIRUBIN,TOTAL 2.5 mg/dL (0.2-1.0); CALCIUM, SERUM 9.5 mg/dL (8.5-10.1); CARBON DIOXIDE 32 mmol/L (21-32); CHLORIDE 108 mmol/L (98-107); CREATININE 3.6 mg/dL (0.6-1.3); GLUCOSE 264 mg/dL (74-106); MAGNESIUM 3.6 mg/dL (1.8-2.4); PHOSPHORUS 5.4 mg/dL (2.5-4.9); POTASSIUM 4.2 mmol/L (3.5-5.1); SODIUM SERUM 153 mmol/L (136-145); TOTAL PROTEIN, SERUM 8.4 g/dL (6.4-8.2)
[2019-07-11] MEDS: glipiZIDE 5 MG TABLET PO SCH (07:30)
--- NOTE | 2019-07-11 07:31 | NUR ---
RN CLOSING NOTES PATIENT SLEEPING IN BED, STILL OBTUNDED/VERY LETHARGIC, OPENS EYES TO DEEP PAIN. REMAINS ON BIPAP, NO SOB OR RESPIRATORY DISTRESS NOTED, SATURATING 96%. LATEST TEMP 98F VIA AXILLARY. ON TELE MONITOR V PACING WITH HR 70'S. IV SITE RFA 18G, FLUSHING AND PATENT, SITE C/D/I, SALINE LOCKED. MOFFETT CATH IN PLACE AND DRAINING WELL. SAFETY MEASURES AND ISOLATION PRECAUTION MAINTAINED. REPOSITIONED Q2H. WOUND TX DONE ORDERED. ALL MD ORDERS ATTENDED. ENDORSED TO AM RN FOR JACKIE.
[2019-07-11 07:32] LABS: UREA NITROGEN, BLOOD 129 mg/dL (7-18)
[2019-07-11 08:00] VITALS: BP_SYST 102; BP_SYST 106; BP_DIAS 60
--- NOTE | 2019-07-11 08:00 | NUR ---
rn note pt tachypneic,on bipap, rr 38, saturation 97%, lung sounds diminished, obtunded, responds to pain only, no fever, BUN 129 reported by lab, will notify .
[2019-07-11] MEDS: BLOOD SUGAR DIAGNOSTIC 1 EACH STRIP IN SCH ×4 (08:33→22:25)
[2019-07-11] MEDS: ASPIRIN EC 81 MG TABLET.DR PO SCH (08:33)
[2019-07-11] MEDS: CARVEDILOL 3.125 MG TABLET PO SCH ×2 (08:34→17:00)
[2019-07-11] MEDS: ISOSORBIDE MONONITRATE (30MG) 30 MG TAB.SR.24H PO SCH (08:34)
[2019-07-11] MEDS: DIVALPROEX SODIUM 125 MG CAP.SPRINK PO SCH ×2 (08:34→17:00)
[2019-07-11] MEDS: FOLIC ACID 1 MG TABLET PO SCH (08:34)
[2019-07-11] MEDS: DULOXETINE HCL 20 MG CAPSULE.DR PO SCH (08:34)
[2019-07-11] MEDS: DUTASTERIDE (0.5 MG) 0.5 MG CAPSULE PO SCH (08:34)
[2019-07-11] MEDS: RIVAROXABAN 15 MG TABLET PO SCH ×2 (08:35→17:00)
[2019-07-11] MEDS: POTASSIUM CHLORIDE 20 MEQ TAB.PRT.SR PO SCH ×2 (08:35→17:00)
[2019-07-11] MEDS: FAMOTIDINE (20 MG) 20 MG TABLET PO SCH (08:35)
[2019-07-11] MEDS: PRIMIDONE 250 MG TABLET PO SCH ×3 (08:35→17:00)
[2019-07-11] MEDS: METOLAZONE 2.5 MG TABLET PO SCH (08:36)
[2019-07-11] MEDS: INSULIN REGULAR, HUMAN 100 UNIT/ML 3 ML VIAL SQ PRN ×4 (08:40→22:26)
--- NOTE | 2019-07-11 09:09 | NUR ---
rn note spoke with Kobi in [place] to reach dr Roberts and he said will call back.
[2019-07-11] MEDS: MORPHINE SULFATE INJ 2 MG/ML DISP.SYRIN IV PRN ×2 (09:43→14:54)
--- NOTE | 2019-07-11 10:00 | NUR ---
AKUA SPOKE WITH DR POTTS AT BEDSIDE, BUN REPORTED, AWARE ABOUT TACHYPNEA. PER MD AWAITING FAMILY TO DISCUSS FURTHER CARE.
[2019-07-11 10:35] LABS: BAND % (MANUAL) 1 % (0.0-5.0); LYMPHOCYTES % (MANUAL) 8 % (16-48); MONOCYTES % (MANUAL) 12 % (0-11.0); NEUTROPHILS % (MANUAL) 79 (42-76)
--- NOTE | 2019-07-11 11:50 | NUR ---
RN NOTE LEFT VOICE MAIL TO PT'S DAUGHTER CLIF REGARDING CONSENT FOR THORACENTHESIS. NO CALL BACK YET.
[2019-07-11 12:00] VITALS: BP 110/59
--- NOTE | 2019-07-11 15:16 | NUR ---
NO CALL BACK FROM DAUGHTER CLIF YET, UNABLE TO OBTAIN CONSENT FOR THORACENTESIS, PER RADIOLOGY UNABLE TO PERFORM TODAY DUE TO ABSENT CONSENT. POSSIBLY TOMORROW FOR THORACENTESIS.
[2019-07-11 16:00] VITALS: BP 102/57
--- NOTE | 2019-07-11 18:03 | NUR ---
SPOKE WITH DR POTTS RE SEIZURE MEDS, HE RECOMMENDED TO F/U WITH DR PAINTER.
[2019-07-11 20:00] VITALS: BP 95/52
[2019-07-11] MEDS: ATORVASTATIN 10 MG TABLET PO SCH (21:01)
[2019-07-11] MEDS: DIVALPROEX SODIUM 250 MG TABLET.DR PO SCH (21:01)
[2019-07-11] MEDS: TAMSULOSIN 0.4 MG CAP.SR.24H PO SCH (21:01)
[2019-07-12] VITALS (51 sets, daily range): BP systolic 52–100; BP diastolic 31–61
[2019-07-12] MEDS: MORPHINE SULFATE INJ 2 MG/ML DISP.SYRIN IV PRN (02:57)
[2019-07-12] MEDS: MEROPENEM 1 G in IV NS 0.9% 100 ML IV SCH ×2 (02:57→16:06)
--- NOTE | 2019-07-12 04:32 | NUR ---
RT NOTE Pt rec'd on bipap per md orders. Pt shows no signs of resp distress or sob. Mepilex in place and no skin tear or redness noted. Bipap plugged into red outlet, Alarms are set and audible. Will continue to monitor. Addendum: 07/12/19 at 0432 by ANGELO BIRCH RT Amended: Links added.
[2019-07-12] MEDS: glipiZIDE 5 MG TABLET PO SCH (07:30)
--- NOTE | 2019-07-12 07:39 | NUR ---
RN OPENING NOTES RECEIVED PATIENT RESTING IN BED COMFORTABLY, DOES NOT SHOW ANY S/S OF DISTRESS. HE IS ON CONTINUOUS BIPAP, TOLERATING WELL. HE IS OBTUNDED, NON-VERBAL, AND BEDBOUND. UNABLE TO AROUSE. TELE MONITOR SHOWING V-PACING. MOFFETT CATH IS INTACT, DRAINING CLEAR AND SHAHRZAD COLORED URINE BY GRAVITY. SKIN IS NOT INTACT, WILL ADDRESS PER WOUND CARE PLAN. PT IS NPO INCLUDING MEDICATIONS. RFA 18 G IS PATENT AND INTACT. SAFETY MEASURES HAVE BEEN IMPLEMENTED, CALL LIGHT IS WITHIN REACH, BED IS IN LOWEST AND LOCKED POSITION, SIDE RAILS UP X2, WILL CONTINUE TO MONITOR FOR ANY CHANGES,
[2019-07-12] MEDS: BLOOD SUGAR DIAGNOSTIC 1 EACH STRIP IN SCH ×5 (07:51→21:29)
[2019-07-12] MEDS: ASPIRIN EC 81 MG TABLET.DR PO SCH (08:24)
[2019-07-12] MEDS: FOLIC ACID 1 MG TABLET PO SCH (08:25)
[2019-07-12] MEDS: DIVALPROEX SODIUM 125 MG CAP.SPRINK PO SCH ×2 (08:25→16:40)
[2019-07-12] MEDS: ISOSORBIDE MONONITRATE (30MG) 30 MG TAB.SR.24H PO SCH (08:25)
[2019-07-12] MEDS: CARVEDILOL 3.125 MG TABLET PO SCH ×2 (08:25→16:40)
[2019-07-12] MEDS: DUTASTERIDE (0.5 MG) 0.5 MG CAPSULE PO SCH (08:25)
[2019-07-12] MEDS: DULOXETINE HCL 20 MG CAPSULE.DR PO SCH (08:25)
[2019-07-12] MEDS: FAMOTIDINE (20 MG) 20 MG TABLET PO SCH (08:26)
[2019-07-12] MEDS: RIVAROXABAN 15 MG TABLET PO SCH ×2 (08:26→16:40)
[2019-07-12] MEDS: POTASSIUM CHLORIDE 20 MEQ TAB.PRT.SR PO SCH ×2 (08:26→16:40)
[2019-07-12] MEDS: PRIMIDONE 250 MG TABLET PO SCH ×3 (08:26→16:40)
[2019-07-12] MEDS: ACETAMINOPHEN 650 MG/SUPP.RECT RC PRN (09:11)
--- NOTE | 2019-07-12 09:25 | NUR ---
RN NOTES PT HAS ABNORMAL VITAL SIGNS. TEMP OF 102 AND BP OF 71/42. ADMINISTERED PRN SUPPOSITORY TYLENOL, SPOKE WITH DR. POTTS REGARDING BP AND RECEIVED ORDERS FOR 500 ML BOLUS OF NS, MADE AWARE OF PT CHF DX. WILL CONTINUE TO MONITOR FOR ANY CHANGES.
[2019-07-12] MEDS ORDERED: IV NS 0.9% 1,000 ML BAG IV ONE (09:30)
--- NOTE | 2019-07-12 11:01 | NUR ---
RN NOTES PT BP STILL LOW AFTER IV BOLUS. SPOKE WITH DR. POTTS, PT TO BE TRANSFERRED TO ICU
--- NOTE | 2019-07-12 12:00 | NUR ---
RN NOTES RECEIVED PT FROM AC VIA BED. PT RESPOND TO PAINFUL STIMULI, NO VERBAL RESPONSE. DOESN;T FOLLOW COMMANDS. PT ON BIPAP. SBP ON 70S. CONNECTED TO MONITOR. PT'S CODE STATUS, DNR/DNI. DR NIETO AWARE OF PT'S CONDITION. WILL ORDER LEVOPHED FOR BP SUPPORT AND PICC INSERTION, WILL CALL FOR CONSENT. WILL CLOSELY MONITOR
[2019-07-12] MEDS ORDERED: NOREPINEPHRINE 16 MG in IV D5W 500 ML IV PRN (12:30)
[2019-07-12] MEDS ORDERED: DOSING PER PHARMACY-AMIKACI IV XX PRN (18:30)
[2019-07-12] MEDS ORDERED: FEE PK DOSING 1 MIN EA MC ONE (18:39)
--- NOTE | 2019-07-12 18:40 | NUR ---
RN CLOSING NOTES PT REMAINS ON BIPAP. HOB ELEVATED. NO SOB NOTED. NO SIGNS OF PAIN NOTED. IV LINES IN PLACE. ON LEVOHED, TITRATED ACCORDINGLY. FC IN PLACE. TX PROVIDED ORDERED. KEPT CLEAN AND DRY. REPOSITIONED Q2. BLE ELEVATED. FOR PICC INSERTION. WILL ENDORSE FOR CONTINUITY OF CARE
--- NOTE | 2019-07-12 19:00 | NUR ---
Received report from the Day RN. Initial assessment done. Pt. resting, calm, sleeping and on continuous BIPAP per RT protocol. No s/s of agitation or restlessness. No s/s of moaning or crying. Pt. lying in bed quiet and sleeping. HOB up @ 35-45 degrees angle. Pt. on Levophed continuous drip. Will monitor continuously pt.'s V/S and status.
--- NOTE | 2019-07-12 19:45 | NUR ---
Lab. Personnel named NOEMI Gregg RN. and notified about critical Lactic Acid result of 2.3 that was done STAT @ 1845 Pm today. Will call/notify Doctor.
--- NOTE | 2019-07-12 19:55 | NUR ---
Dr. Saran Arzate called and notified of pt. critical Lactic Acid result of 2.3 that was done STAT @ [address] Saran Arzate made aware and since pt. on antibiotics started already and pt. will be given antibiotics tonight, Dr. Saran Arzate said there's no need for further orders. See Emar.
[2019-07-12] MEDS ORDERED: AMIKACIN 400 MG in IV D5W 100 ML IV SCH (20:00)
--- NOTE | 2019-07-12 20:00 | NUR ---
Complete assessment done. Turned/repositioned pt. slightly to the left side. Keep pt. clean, dry and comfortable. Still on Levophed drip and increased it to 30 mcg./min. due to low BP - see v/s. BIPAP continuous.
--- NOTE | 2019-07-12 20:08 | NUR ---
Lab. Personnel, Michael Paula called/notified VIKA Gregg that Procalcitonin result is critical and it is 2.01 which is high. See Lab. results.
--- NOTE | 2019-07-12 20:20 | NUR ---
route returner Nawaf was able to answer DR. Rebecca Arzate returned call, notified Dr. rebecca Arzate about hte critical procalcitonin result that was done @ [address] Rebecca Arzate made aware and gave no further orders. Will continue to monitor labs. results.
--- NOTE | 2019-07-12 20:30 | NUR ---
Meds. as scheduled given Amikacin/Amikin antibiotic IV given @ around this time.
[2019-07-12] MEDS: LINEZOLID RTU BAG 600 MG in PREMIX 1 EA IV SCH (20:45)
--- NOTE | 2019-07-12 20:45 | NUR ---
Zyvox 600 mg. IV antibiotic signed and will be given @ this time. Will monitor pt. V/S continuously.
--- NOTE | 2019-07-12 21:00 | NUR ---
Sulaiman Leach RN started pt. Picclline insertion.
[2019-07-12] MEDS: DIVALPROEX SODIUM 250 MG TABLET.DR PO SCH (21:27)
[2019-07-12] MEDS: TAMSULOSIN 0.4 MG CAP.SR.24H PO SCH (21:27)
[2019-07-12] MEDS: ATORVASTATIN 10 MG TABLET PO SCH (21:27)
--- NOTE | 2019-07-12 21:50 | NUR ---
Hany Law almost done with pt.'s Piccline Insertion. Pt. for X-ray s/p Piccline insertion @ the [facility].
--- NOTE | 2019-07-12 22:00 | NUR ---
Turned/repositioned pt. to supine and keep pt. safe and facility maintenance technician bed.
--- NOTE | 2019-07-12 22:47 | NUR ---
Levophed drip increased from 30 mcg./min to 40 mcg./min @ this time due to low BP = 83/56 , HR = 70/min. and 02 sat. of 98 % BIPAP continuous.
[2019-07-12] MEDS ORDERED: PHENYLEPHRINE 10 MG/ML VIAL ONE (23:18)
[2019-07-12 23:22] LABS: BILIRUBIN,DIRECT 1.8 mg/dL (0.0-0.2); BILIRUBIN,TOTAL 3.1 mg/dL (0.2-1.0); CREATININE 6.9 mg/dL (0.6-1.3)
[2019-07-12] MEDS: PHENYLEPHRINE 80 MG in IV D5W 250 ML IV PRN (23:26)
[2019-07-13] VITALS (67 sets, daily range): BP systolic 53–111; BP diastolic 26–64
--- NOTE | 2019-07-13 | NUR ---
Pt. resting and sleeping. Still on BIPAP. Levophed drip is running @ 40 mcg./min.due to low BP. Will continuously watch/observe/monitor pt. V/S. Reassessment done and completed. Keep pt. safe, warm, dry and comfortable in bed. Dr. Saran Arzate gave order of Neosynephrine IV drip to start anytime once SBP will go below 80 or too low. Will continue to monitor pt.'s BP and V/S.
--- NOTE | 2019-07-13 | NUR ---
Dr. Saran Arzate aware of the lactic acid result @ around 2359 = 2.9. Since pt. already receiving antibiotics tonight, Dr. García Arzate gave no further orders.
[2019-07-13] MEDS: MEROPENEM 1 G in IV NS 0.9% 100 ML IV SCH (02:22)
[2019-07-13] MEDS: PHENYLEPHRINE 80 MG in IV D5W 250 ML IV PRN ×2 (02:22→08:50)
--- NOTE | 2019-07-13 02:22 | NUR ---
Neosynephrine-Phenylephrine started @ 0222 Am @ 100 mcg./min. for BP = 53/37. Will continuously monitor pt.
[2019-07-13] MEDS ORDERED: NOREPINEPHRINE 4 MG/4 ML AMPUL IV ONE ×2 (02:35)
[2019-07-13] MEDS ORDERED: SODIUM BICARBONATE SYR 50 MEQ/50 ML DISP.SYRIN ONE ×2 (03:00→03:01)
[2019-07-13] MEDS ORDERED: NOREPINEPHRINE 8 MG in IV D5W 500 ML IV ONE (03:30)
--- NOTE | 2019-07-13 04:00 | NUR ---
Provided bedside nsg. care and repositioned supine. Reassessment done. Pt. still on BIPAP. RT @ the bedside. Pt. on Phenylephrine-Neosynephrine drip @ 140 mcg. /minute to help stabilize BP. Levophed drip @ 20 mcg./minute. Will continue to monitor pt. Keep pt. clean, dry, safe and comfortable in bed.
--- NOTE | 2019-07-13 05:00 | NUR ---
Complete bedbath given to pt. keep pt. clean, dry, safe and comfortable in bed. Will Continue monitoring pt.'s V/S and will titrate drip as per pt. need.
[2019-07-13 05:34] LABS: CALCIUM, SERUM 8.2 mg/dL (8.5-10.1); CARBON DIOXIDE 25 mmol/L (21-32); CHLORIDE 107 mmol/L (98-107); SODIUM SERUM 152 mmol/L (136-145)
[2019-07-13 05:47] LABS: CREATININE 7.8 mg/dL (0.6-1.3); GLUCOSE 434 mg/dL (74-106); UREA NITROGEN, BLOOD 218 mg/dL (7-18)
--- NOTE | 2019-07-13 05:55 | NUR ---
Lab. Personnel Mike gave report of critical labs. Glucose = 434, BUN = 218 , Creatinine = 7.8 and Lactic Acid = 4.6. Will call and will notify Dr. Saran Arzate
--- NOTE | 2019-07-13 06:15 | NUR ---
Carito Victor returned call @ around this time and reported or notified MD of critical labs. results that was reported by Lab. personnel Mike. made aware of latest Glucose, BUN/Crea, and Lactic Acid lab. results done this Am. aware that pt. on antibiotics, no further orders given or needed.
[2019-07-13] MEDS: BLOOD SUGAR DIAGNOSTIC 1 EACH STRIP IN SCH ×2 (06:50→12:25)
[2019-07-13] MEDS: glipiZIDE 5 MG TABLET PO SCH (06:50)
[2019-07-13] MEDS: INSULIN REGULAR, HUMAN 100 UNIT/ML 3 ML VIAL SQ PRN ×2 (06:51→12:40)
--- NOTE | 2019-07-13 06:51 | NUR ---
Accucheck taken with result of BS = 350. Pt. given 8 units of Regular Insulin per S/S @ the left Lower Quadrant.
--- NOTE | 2019-07-13 07:15 | NUR ---
Gave report to the next assigned Day Shift RN.
--- NOTE | 2019-07-13 07:30 | NUR ---
BATTING MACHINE OPERATOR INSULATION AM NOTES: PATIENT IN BED, NON VERBAL, RESPONSIVE TO DEEP PAIN ONLY, ON BIPAP CONTINUOUS, FIO2 50%. MOUTH BRETHER. BREATHING IS EVEN AND UNLABORED. V PACING, NO S/S OF PAIN. NO FACIAL GRIMACING. LEFT PACEMAKER, RFA G 18, RFA G 20, RIGHT IJ PICC LINE DOUBLE LUMEN, CDI DRESSINGS TO ALL SITES. ONGOING LEVOPHED DRIP AT 30 MCG, NEOSYNEPHRINE AT 160 MCG/MIN. MOFFETT CATH IN PLACE, DRAINING YELLOW CLOUDY URINE, INADEQUATE AMOUNT. HOB ELEVATED. PT NPO, SEE NURSING NOTES FOR SKIN ISSUES. WILL TURN AND REPOSITION Q 2 HOURS. OFF LOAD BILAT HEEL. KEPT CLEAN AND DRY. CALL LIGHT PLACED WITHIN REACH. WILL CONT. TO MONITOR.
[2019-07-13] MEDS ORDERED: NOREPINEPHRINE 16 MG in IV D5W 500 ML IV PRN (08:30)
[2019-07-13] MEDS: DUTASTERIDE (0.5 MG) 0.5 MG CAPSULE PO SCH (09:00)
[2019-07-13] MEDS: DIVALPROEX SODIUM 125 MG CAP.SPRINK PO SCH (09:00)
[2019-07-13] MEDS: CARVEDILOL 3.125 MG TABLET PO SCH (09:00)
[2019-07-13] MEDS: PRIMIDONE 250 MG TABLET PO SCH ×2 (09:00→12:27)
[2019-07-13] MEDS: FOLIC ACID 1 MG TABLET PO SCH (09:00)
[2019-07-13] MEDS: RIVAROXABAN 15 MG TABLET PO SCH (09:00)
[2019-07-13] MEDS: ASPIRIN EC 81 MG TABLET.DR PO SCH (09:00)
[2019-07-13] MEDS: POTASSIUM CHLORIDE 20 MEQ TAB.PRT.SR PO SCH (09:00)
[2019-07-13] MEDS: ISOSORBIDE MONONITRATE (30MG) 30 MG TAB.SR.24H PO SCH (09:00)
[2019-07-13] MEDS: FAMOTIDINE (20 MG) 20 MG TABLET PO SCH (09:00)
[2019-07-13] MEDS: LINEZOLID RTU BAG 600 MG in PREMIX 1 EA IV SCH (09:04)
--- NOTE | 2019-07-13 09:30 | NUR ---
RN NOTES DUE MEDS GIVEN
--- NOTE | 2019-07-13 09:57 | NUR ---
RN NOTES CODE STATUS CHANGED TO COMFORT MEASURES ONLY PER MANUEL PHAM. AWAITING HOSPICE EVAL CASE MANAGEMENT AWARE
--- NOTE | 2019-07-13 13:43 | NUR ---
fio2 increased from 50% to 70% due to 86% spo2. Addendum: 07/13/19 at 1343 by DALE CAT RT Amended: Links added.
--- NOTE | 2019-07-13 13:51 | NUR ---
RN NOTES FIO2 INCREASED TO 70%.
--- NOTE | 2019-07-13 14:35 | NUR ---
PATIENT NOTED ASYSTOLE ON MONITOR. PATIENT ON COMFORT MEASURES ONLY. AWAITING FOR HOSPICE EVAL. PUPILS FIXED AND DILATED. NO SPONTANEOUS BREATHING. NO PALPABLE PULSES. NO HEART TONE . PRONOUNCED AT 1435.
--- NOTE | 2019-07-13 15:21 | NUR ---
RN NOTES 1435 - PATIENT ASYSTOLE, WAS FOR HOSPICE EVAL. NO HEART BEAT, NO BREATHING. PATIENT WAS ON PRESSOR AT MAXIMUM DOSE. PRONOUNCED A T 1435 BY LANRE SMITH. TEMO NIEVES NURSING POWER PLANT OPERATIONS MANAGER NOTIFIED. 1446 - CLIF SERRANO DAUGHTER NOTIFIED AT [phone] 1448 - [facility] NOTIFIED. REFERENCE ID [id number], CASE CLOSED. 1450 - MANUEL PHAM DNP COVERING DR. POTTS NOTIFIED 1451 - ADMITTING NOTIFIED PER FAMILY, THEY WILL COME IN A FEW AND WILL TELL THE NAME OF THE MORTUARY. POST MORTEM CARE DONE. ALL BELONGINGS GATHERED IN BELONGINGS PLASTIC BAG AND WILL GIVE TO FAMILY.
--- NOTE | 2019-07-13 15:44 | NUR ---
VIKA NOTES PATIENT'S DAUGHTER AND FAMILY AT BEDSIDE. Addendum: 07/13/19 at 1639 by COLLINS STEVEN RN 1545 BELONGINGS RELEASED TO DAUGHTER CLIF SERRANO.
--- NOTE | 2019-07-13 16:10 | NUR ---
RN NOTES REMAINS BROUGHT DOWN TO MORTUARY BY ANAND SANDY AND HYDRAULIC CHAIR ASSEMBLER
[2019-07-15] MEDS ORDERED: AMIKACIN 400 MG in IV D5W 100 ML IV SCH (20:00)
== END 2019-07-13 15:36 | disposition expired | DRG 871 ==
LOC: ER 01:41 → TELE1 02:57 → ICU 11:27 → TELE-TD 07-06 05:57 → TELE1 07-06 10:01 → ICU 07-12 11:36
PROVIDERS: ADMIT Nurse Practitioner Acute Care; ATTEND Nurse Practitioner Acute Care
PROC: 5A09457 Assistance with Respiratory Ventilation, 24-96 Consecutive Hours, Continuous Positive Airway Pressure (ICD-10-PCS; principal; 2019-07-09)
PROC: 05HM33Z Insertion of Infusion Device into Right Internal Jugular Vein, Percutaneous Approach (ICD-10-PCS; 2019-07-12)
PROC: B543ZZA Ultrasonography of Right Jugular Veins, Guidance (ICD-10-PCS; 2019-07-12)
DX: A41.9 Sepsis, unspecified organism (principal); J15.6 Pneumonia due to other Gram-negative bacteria; Z51.5 Encounter for palliative care; Z66 Do not resuscitate; G93.41 Metabolic encephalopathy; I50.23 Acute on chronic systolic (congestive) heart failure; J96.01 Acute respiratory failure with hypoxia; N17.0 Acute kidney failure with tubular necrosis; R65.21 Severe sepsis with septic shock; J96.02 Acute respiratory failure with hypercapnia; I21.A1 Myocardial infarction type 2; I13.0 Hypertensive heart and chronic kidney disease with heart failure and stage 1 through stage 4 chronic kidney disease, or unspecified chronic kidney disease; N18.4 Chronic kidney disease, stage 4 (severe); N39.0 Urinary tract infection, site not specified; E44.0 Moderate protein-calorie malnutrition; E87.1 Hypo-osmolality and hyponatremia; M86.9 Osteomyelitis, unspecified; D68.59 Other primary thrombophilia; E87.0 Hyperosmolality and hypernatremia; I69.354 Hemiplegia and hemiparesis following cerebral infarction affecting left non-dominant side; I25.5 Ischemic cardiomyopathy; E11.22 Type 2 diabetes mellitus with diabetic chronic kidney disease; Z87.01 Personal history of pneumonia (recurrent); Z86.718 Personal history of other venous thrombosis and embolism; Z74.01 Bed confinement status; Z95.810 Presence of automatic (implantable) cardiac defibrillator; Z95.1 Presence of aortocoronary bypass graft; Z88.0 Allergy status to penicillin; Z79.84 Long term (current) use of oral hypoglycemic drugs; Z79.01 Long term (current) use of anticoagulants; K21.9 Gastro-esophageal reflux disease without esophagitis; M19.90 Unspecified osteoarthritis, unspecified site; N40.0 Benign prostatic hyperplasia without lower urinary tract symptoms; G40.909 Epilepsy, unspecified, not intractable, without status epilepticus; F03.90 Unspecified dementia, unspecified severity, without behavioral disturbance, psychotic disturbance, mood disturbance, and anxiety; E87.5 Hyperkalemia; I25.10 Atherosclerotic heart disease of native coronary artery without angina pectoris; E11.40 Type 2 diabetes mellitus with diabetic neuropathy, unspecified; Z88.8 Allergy status to other drugs, medicaments and biological substances; E11.69 Type 2 diabetes mellitus with other specified complication; Z88.5 Allergy status to narcotic agent; Z91.010 Allergy to peanuts; Z79.899 Other long term (current) drug therapy; B96.20 Unspecified Escherichia coli [E. coli] as the cause of diseases classified elsewhere; D63.1 Anemia in chronic kidney disease; E78.5 Hyperlipidemia, unspecified; I70.0 Atherosclerosis of aorta; E66.9 Obesity, unspecified; Z68.28 Body mass index [BMI] 28.0-28.9, adult; M21.371 Foot drop, right foot; J44.9 Chronic obstructive pulmonary disease, unspecified; L89.216 Pressure-induced deep tissue damage of right hip
CPT/HCPCS: 36415; 36569; 36600; 70450-TC; 71045-TC; 76770-TC; 80048-TC; 80053-TC; 80061-TC; 80076-TC; 80150; 80164-TC; 81000-TC; 82247-TC; 82248-TC; 82565-TC; 82570-TC; 82803-TC; 82962-TC; 83540-TC; 83605-TC; 83735-TC; 83880; 84100-TC; 84155-TC; 84300-TC; 84443-TC; 84484-TC; 85025-TC; 85730-TC; 87040-TC; 87081-TC; 87086-TC; 87186-TC; 93307-TC; 93970-TC; 94760-TC; 94762-TC; 94799-TC; 95819-TC; A4216; C1751; G0378; J0278; J0692; J1815; J1940; J2020; J2185; J2270; J2370; J3480; J3490; J7030; J7040; J7050; J7060